=== PATIENT | male | born 1935 | race African-American/Black ===

== ENCOUNTER 2018-01-25 12:36 | Inpatient (IN) | payer MEDICARE, MEDICAID ==
[2018-01-25] MEDS ORDERED: Naloxone HCl 0.4 mg/ml Vial ONE (12:51)
[2018-01-25 13:32] LABS: #Eosinphils 0.1 thou/uL (0.0-0.7); #Lymphocytes 2.6 thou/uL (1.20-3.40); #Monocytes 0.9 thou/uL (0.11-0.59); #Neutrophils 9.6 thou/uL (1.40-6.50); %Basophils 0.1 % (0.0-1.0); %Eosinophils 0.6 % (0.0-10.0); %Lymphocytes 19.4 % (21.0-51.0); %Monocytes 6.9 % (0.0-10.0); %Neutrophils 72.9 % (42.0-75.0); Hemoglobin 11.9 g/dL (14.0-18.0); Mean Corpuscular HGB CONC 30.9 g/dL (32.0-36.0); Mean Corpuscular Hemoglobin 31.2 pg (27.0-31.0); Mean Platelet Volume 7.1 fL (7.4-10.4); Platelet Count 285 thou/uL (130-400); RBC Distribution Width 15.8 % (11.5-14.5); Red Blood Cell (RBC) Count 3.81 mill/uL (4.70-6.10); White Blood Cell (WBC) Count 13.2 thou/uL (4.8-10.8)
[2018-01-25 13:36] LABS: Bilirubin Small (Negative); Blood, Urine Trace (Negative); Clarity CLOUDY (Clear); Glucose, Urine (Dipstick) Negative (Negative); Leukocyte Moderate (Negative); Nitrite Positive (Negative); Protein, Urine (Dipstick) Trace mg/dL (Neg-Trace); Specific Gravity, Urine 1.025 (1.002-1.036); pH, Urine 5.5 (5.0-9.0)
[2018-01-25 13:38] LABS: Prothrombin Time 48.7 SEC (12.0-14.7)
[2018-01-25 13:38] LABS: Bacteria/HPF 4+ HPF (None Seen); Pathc Cast-AUWi Flag 2.16 (0-2.49); RBC/HPF 0-3 HPF (0-3)
[2018-01-25 13:39] LABS: PTT 75.5 SEC (22.9-36.1)
[2018-01-25 13:42] LABS: INR-International Normal Ratio 4.9
[2018-01-25 13:51] LABS: Hyaline Casts/LPF NONE SEEN LPF (0-3 Hyaline)
[2018-01-25 13:54] LABS: ALT (SGPT) 24 U/L (8-55); AST (SGOT) 28 U/L (5-34); Albumin 2.9 g/dL (3.4-4.8); Alkaline Phosphatase 89 U/L (40-150); Anion Gap 12 mmol/L (10-20); BUN (Urea Nitrogen) 11 mg/dL (8.4-25.7); Bilirubin, Total 0.6 mg/dL (0.2-1.2); Calc. Creatinine Clearance 0 mL/min (70-130); Calcium 9.4 mg/dL (7.8-10.44); Carbon Dioxide 27 mmol/L (23-31); Chloride 102 mmol/L (98-107); Estimated GFR-MDRD Greater than 90; Globulin 5.6 g/dL (2.4-3.5); Glucose 89 mg/dL (83-110); Potassium 3.5 mmol/L (3.5-5.1); Protein, Total 8.5 g/dL (5.8-8.1); Sodium 137 mmol/L (136-145)
[2018-01-25 13:58] LABS: CKMB 1.5 ng/mL (0-6.6); Troponin I 0.012 ng/mL (< 0.028)
[2018-01-25] MEDS ORDERED: cefTRIAXone\\ROCEPHIN 2 GM in Sodium Chloride 0.9% 100 ML IVPB SCH (14:30)
--- NOTE | 2018-01-25 15:25 | CT ---
HEAD CT WITHOUT CONTRAST: Date: 01/25/18 COMPARISON: 09/13/16. HISTORY: Altered mental status, pain. TECHNIQUE: Serial axial CT imaging obtained at 5 mm intervals from vertex through skull base without contrast. FINDINGS: There is a hemispheric subdural hematoma on the right, new when compared to prior imaging. It is prim arily isodense/hypodense, but there are some focal areas of hyperdensity within its anterior portion, best seen on image 23. There is no evidence for subdural hemorrhage on the left. There is periventricular, deep, and subcortical white matter hypodensity, suggesting small vessel dis ease, most prominent in bilateral parieto-occipital regions. The imaged paranasal sinuses/mastoid air cells are well aerated. There is no displaced calvarial frac ture. There is atherosclerotic calcification of the distal vertebral arteries and the cavernous carot id arteries. There is prominent diffuse cerebral volume loss. The hemispheric right-sided subdural hematoma measures up to 1.0 cm in transverse dimension in the pa rietal region, and up to 7-8 mm in transverse dimension in the frontal region. No associated midline shift is seen. IMPRESSION: Hemispheric right-sided acute on chronic subdural hematoma as described above. No midline shift noted at this point. There is extensive cerebral volume loss and evidence of small vessel disease. Dr. Harrison made aware at 1345 hours on 01/25/18. CODE CR. POS: [facility]
--- NOTE | 2018-01-25 15:42 | RAD ---
PORTABLE CHEST ONE VIEW 01/25/18 at 2:34 p.m. HISTORY: Altered mental status. FINDINGS/IMPRESSION: Comparison is made with exam of 09/13/16. The patient is rotated to the right. The heart size is normal. No lobar consolidation, definite pneum othorax or pleural effusions are seen. There are degenerative changes in the spine. POS: [facility]
--- NOTE | 2018-01-25 15:44 | RAD ---
AP PELVIS: Date: 01/25/18 HISTORY: Pelvic pain. FINDINGS/IMPRESSION: There are degenerative changes in the spine. There is a joe in the visualized portions of the femur. Degenerative changes are present. There is artifact overlying the right hip and proximal thigh which obscures bony detail. Though no definite right-sided fracture is seen, I cannot completely exclude a fracture on this exam. Recommend repeating the exam. POS: [facility]
[2018-01-25] MEDS ORDERED: Phytonadione 10 MG in Sodium Chloride 0.9% 50 ML IVPB SCH (15:45)
[2018-01-25] MEDS ORDERED: Ondansetron ODT 4 MG TAB PO PRN (16:48)
[2018-01-25] MEDS ORDERED: Ondansetron HCl/PF 4 MG/2 ML Vial IVP PRN (16:48)
[2018-01-25 16:51] LABS: Troponin I 0.027 ng/mL (< 0.028)
[2018-01-25] MEDS ORDERED: FLU VACC TS2017-18 (>65YR) 0.5 ML SYRINGE IM ONE (17:15)
[2018-01-25] MEDS: Dextrose 5 % And 0.9 % NaCl 1,000 ML IV SCH (17:46)
[2018-01-25] MEDS: Ciprofloxacin Lactate/D5W 200 MG in Premix Bag 1 BAG IVPB SCH (18:17)
[2018-01-25 20:03] LABS: Troponin I 0.015 ng/mL (< 0.028)
--- NOTE | 2018-01-25 21:34 | CON ---
DATE OF CONSULTATION: 01/25/2018 HISTORY OF PRESENT ILLNESS: Mr. Allen is an 83-year-old male, who presented to the emergency depar tment today with a nontraumatic subdural hematoma and altered mental status. He also has an obvious signs of infection at his penis and has stage II bedsores on the posterior side of his back. Mr. Ariel gray presented to the emergency department after the family has did not want him on hospice any longe r. There is no gait or no information about falls that we can obtain at this time as the family is n ot here. The patient has a GCS of approximately 10. He has been on Coumadin and His INR is 4.9. Ho spice was revoked this morning and a CT of the brain shows acute on chronic right-sided subdural sarwat pat over the right convexity. There is no midline shift. On exam, he localized to pain in the upper and lower extremities bilaterally, but he only makes incom prehensible sounds. His heart rate is in the 120s. He does not follow commands, so I was unable to check the majority of his cranial nerves. His pupils are equal and reactive to light bilaterally. N eurosurgery was consulted for the findings on the CT scan. ALLERGIES: No known drug allergies. CURRENT MEDICATIONS: 1. Metoprolol. 2. Atorvastatin. 3. Omnicef. 4. Vitamin C. 5. Acetaminophen. 6. Docusate sodium. 7. Lansoprazole. 8. Valproic acid. 9. Warfarin. PAST MEDICAL HISTORY: Tetanus vaccine is up to date. Flu vaccine is up to date. The patient has a history of hyperlipidemia, hypertension. Neurologic disease including dementia and CVA. The rest wa s unable to obtain. MALE SURGICAL HISTORY: Unable to obtain at this time. SOCIAL HISTORY: The patient lives at home with his family. He was just taken off of hospice this mo rning by his family. REVIEW OF SYSTEMS: Unable to obtain because of a caviat of patient making incomprehensible sounds. PHYSICAL EXAMINATION: VITAL SIGNS: Reviewed. The patient is tachycardic. Systolic blood pressures in the 150s. He has a GCS of 10, making incomprehensible sounds. Response to pain in the upper and lower extremities bila terally localizing. HEENT: Normocephalic, atraumatic. Hearing intact. Moist mucous membranes. Trachea is midline. Ey es: Pupils are equal and reactive to light. Extraocular muscles are intact. Sclerae is white, oswald cteric. CARDIOVASCULAR: He has a tachycardic rate, normal rhythm. S1, S2. Heart sounds heard. EXTREMITIES: There is no distal cyanosis or clubbing noted. Pulses were palpated in the lower extre mity and posterior tibial pulses and brachial and radial pulses in the upper extremities that are +2. NEUROLOGIC: Cranial nerves are intact. The patient does not respond to my questions appropriately, making incomprehensible sounds. He has a GCS of 10. I am unable to tell whether he has any focal or motor deficits as he does not follow commands and does not communicate well. The patient has multip le medical problems. ASSESSMENT: Kishan Allen is an 83-year-old male who had hospice revoked this morning. He present s with a penile infection, acute on chronic right-sided subdural hematoma. He has nonhealing stage I I bedsores on his back. PLAN: There is no neurosurgical indication at this time. Medicine team will admit the patient. The y will reverse his Coumadin and get his INR into therapeutic range. The subdural hematoma is not hug e, and I am not worried about pressure on the brain at this time. He has many other medical concerns at this time. Images were reviewed by Dr. Whitten and he agrees with my plan. If there are any f urther questions, please feel free to contact Neurosurgery.
[2018-01-26] MEDS: Ciprofloxacin Lactate/D5W 200 MG in Premix Bag 1 BAG IVPB SCH ×2 (05:01→17:39)
[2018-01-26] MEDS: Dextrose 5 % And 0.9 % NaCl 1,000 ML IV SCH ×2 (05:53→17:38)
[2018-01-26] MEDS ORDERED: cefTRIAXone\\ROCEPHIN 1 GM, Syringe 0.4 ML in Sterile Water 9.6 ML SLOW IVP SCH (08:00)
[2018-01-26] MEDS ORDERED: cefTRIAXone\\ROCEPHIN 1 GM in Sodium Chloride 0.9% 100 ML IVPB SCH (08:00)
[2018-01-26 08:04] LABS: #Eosinphils 0.1 thou/uL (0.0-0.7); #Neutrophils 8.7 thou/uL (1.40-6.50); %Basophils 0.3 % (0.0-1.0); %Eosinophils 0.6 % (0.0-10.0); %Lymphocytes 16.6 % (21.0-51.0); %Monocytes 8.5 % (0.0-10.0); %Neutrophils 74.1 % (42.0-75.0); Hemoglobin 11.3 g/dL (14.0-18.0); Mean Corpuscular HGB CONC 31.5 g/dL (32.0-36.0); Mean Corpuscular Hemoglobin 31.7 pg (27.0-31.0); Mean Platelet Volume 7.4 fL (7.4-10.4); Platelet Count 268 thou/uL (130-400); RBC Distribution Width 15.5 % (11.5-14.5); Red Blood Cell (RBC) Count 3.55 mill/uL (4.70-6.10); White Blood Cell (WBC) Count 11.8 thou/uL (4.8-10.8)
[2018-01-26 08:15] LABS: Glucose 73 mg/dL (83-110)
--- NOTE | 2018-01-26 08:16 | CON ---
DATE OF CONSULTATION: 01/26/2018 PULMONARY OR CRITICAL CARE CONSULTATION CONSULTING PHYSICIAN: Dr. Damon. REASON FOR CONSULTATION: ICU stay. HISTORY OF PRESENT ILLNESS: This is an 83-year-old -[place] male who presented to the emergency room yesterday with a nontraumatic subdural hematoma and altered mental status. I have reviewed consultations and other notes in the chart. The patient is unable to provide much in the way of history, although he can answer some general questions. The patient had been on hospice at home. Family became concerned because he was not as responsive as he had been. They revoked hospice and had him transported to the emergency room. Here , he was found to be in bad shape with an ulcer on his penis from a condom catheter. He also had significant bedsores on his back. He is also chronically contracted. PAST MEDICAL HISTORY: Stroke, dementia, decubitus ulcers, hyperlipidemia, hypertension. PAST SURGICAL HISTORY: Not known at this time. MEDICATIONS PRIOR TO ADMISSION: Metoprolol, atorvastatin, Omnicef, vitamin C, acetaminophen, docusate, lansoprazole, valproic acid, warfarin - indication of warfarin is not known at this time. SOCIAL HISTORY: Lives at home with his family. Smoking and alcohol history, not known. ALLERGIES: None. REVIEW OF SYSTEMS: Unable to obtain as patient cannot add much to the history. PHYSICAL EXAMINATION: VITAL SIGNS: Temperature 98.8, pulse 111, blood pressure 146/69, respiratory rate 20. GENERAL: This patient is chronically contracted in both arms and legs, has significant ulceration over his penis. Has obvious skin breakdown in the sacral region and also over pressure points on his feet. GENERAL: He will arouse. He asks for water. Does not answer much more in the way of questions. He is not oriented. HEENT: Pupils are reactive. Sclerae are anicteric. Oropharynx dry. NECK: No JVD, no thyromegaly. LUNGS: Clear to auscultation without wheezing. CARDIAC: S1 and S2 regular, without murmur. ABDOMEN: There is a PEG tube in place. He has a binder over the PEG tube to keep him from pulling in and out. EXTREMITIES: Severe muscle wasting and contractures. Difficult to tell if he could move anything secondary to degree of contractures. LABORATORY DATA: INR is 4.9. White blood cell count 13.2, hematocrit 38.4, platelet count 285. Sodium 137, potassium 3.5, chloride 102, CO2 27, BUN 11, creatinine 0.7, glucose 89, albumin was 2.9, C-reactive protein 6.5. ASSESSMENT: 1. Significant decubitus ulcers of the penile ulceration. 2. Nontraumatic subdural hematoma. PLAN: The patient does not require ICU care. He can be transferred to the stroke floor. His warfarin has been stopped. He is currently on anti- infective therapy for his ulcerations. I would recommend monitoring. Continue monitoring his PT/INR to make sure he does not need additional reversal of anticoagulation. 70 min. of time was pent performing this consultation. Of the 70 min., greater than 50% of time was spent on counseling and coordination of care [email or web address]
[2018-01-26 08:22] LABS: INR-International Normal Ratio 1.4; Prothrombin Time 17.3 SEC (12.0-14.7)
[2018-01-26 08:32] LABS: Anion Gap 11 mmol/L (10-20); BUN (Urea Nitrogen) Less than 20 mg/dL (8.4-25.7); Calc. Creatinine Clearance 90 mL/min (70-130); Calcium 9.5 mg/dL (7.8-10.44); Chloride 104 mmol/L (98-107); Estimated GFR-MDRD Greater than 90; Sodium 138 mmol/L (136-145)
[2018-01-26 08:47] LABS: Carbon Dioxide 25 mmol/L (23-31)
[2018-01-26] MEDS: Tamsulosin HCl 0.4 MG CAP PO SCH (09:14)
--- NOTE | 2018-01-26 09:34 | PRG ---
DATE OF SERVICE: 01/26/2017 SUBJECTIVE: The patient is seen and examined at the bedside. He is able to follow my simple command s. He is aware that he is in the hospital, but he does not know where. He knows that we are in the January, but he does not know the year. OBJECTIVE: VITAL SIGNS: Blood pressure is 122/62, pulse is 113, respiratory rate is 17, pulse oximetry is 100%. HEENT: His head is atraumatic, normocephalic. Eyes: Pupils are equal, responding to light properly . Sclerae nonicteric. Oral mucosa is moist. NECK: Supple. LUNGS: Clear. HEART: S1, S2. Tachycardic. No S3, no S4. ABDOMEN: Soft. He has a PEG tube in place covered with a belt, which protects from pulling out of t he tube. EXTREMITIES: He has contractions, mainly at the right upper and right lower extremity, most likely i t is related to previous CVA. SKIN: He has decubiti, right foot and sacrum. LABORATORY DATA: White count of 11.8, hemoglobin 11.3, hematocrit 35.7, platelet count is 268. INR is 1.4, PT is 17.3. Chemistry is pending. Glucose 73. Microbiology is growing gram negative rods i n urine. Blood culture no growth. Blood culture from the penis, he has some ulceration, is pending. Although, preliminary Gram-stain showed no WBCs, few epithelial cells, no organisms seen. IMPRESSION AND PLAN: 1. Chronic subdural hematoma, not requiring any neurosurgical intervention. His hyperanticoagulatio n was reversed, which is good, but it does not look like he was taking any Coumadin or any blood thin ner at home except for aspirin, so it is not clear why his coagulation was significantly off. 2. Significant decubiti and ulcers of penis, right foot and sacrum. 3. Contraction of the right upper and lower extremity, most likely related to previous stroke. 4. PEG tube. 5. Urinary tract infection with gram negative rods. 6. Microcytic anemia. We will check folic acid and vitamin B12 levels. 7. Encephalopathy. At this point, unclear whether this is related to his UTI and on the top of his brain problems it looks like he has some dementia because one of his home medications is donepezil, s o plan is to consult PT and OT, and wound care. We will assess dysphagia, but we will use PEG tube t o feed him and we start him on his metoprolol and Flomax along with atorvastatin. The rest of medica tions will be on hold for now. We will continue his sequential compression devices and he will be mo klaudia to the stroke unit.
[2018-01-26] MEDS: Potassium Chloride 20 MEQ TAB PO SCH ×2 (16:12→20:32)
[2018-01-26] MEDS: Atorvastatin Calcium 40 MG TAB PO SCH (20:31)
[2018-01-27 05:26] LABS: Anion Gap 10 mmol/L (10-20); BUN (Urea Nitrogen) 6 mg/dL (8.4-25.7); Calc. Creatinine Clearance 93 mL/min (70-130); Carbon Dioxide 24 mmol/L (23-31); Chloride 107 mmol/L (98-107); Estimated GFR-MDRD Greater than 90; Glucose 120 mg/dL (83-110); Potassium 3.4 mmol/L (3.5-5.1); Sodium 138 mmol/L (136-145)
[2018-01-27] MEDS: Ciprofloxacin Lactate/D5W 200 MG in Premix Bag 1 BAG IVPB SCH (05:31)
[2018-01-27] MEDS ORDERED: Iopamidol 370 76% 100 ML VIAL ONE (07:50)
[2018-01-27] MEDS: Tamsulosin HCl 0.4 MG CAP PO SCH (09:24)
[2018-01-27] MEDS ORDERED: Labetalol HCl 100 MG/20 ML VIAL SLOW IVP PRN (09:34)
[2018-01-27] MEDS ORDERED: hydrALAZINE 20 MG/ML VIAL SLOW IVP PRN (09:34)
[2018-01-27] MEDS: Dextrose 5 % And 0.9 % NaCl 1,000 ML IV SCH (14:50)
[2018-01-27] MEDS ORDERED: Meropenem 1 GM in Sodium Chloride 0.9% 100 ML IVPB SCH (17:00)
--- NOTE | 2018-01-27 18:18 | PDOC.PN ---
- Subjective Encounter Start Date: 01/27/18 Encounter Start Time: 10:00 Patient seen and examined. No new complaints. No overnight events - Objective MAR Reviewed: Yes Vital Signs & Weight: Vital Signs (12 hours) Temp Pulse Pulse Pulse Resp BP BP 01/27/18 16:00 98.0 F 130 H 16 01/27/18 12:00 99.0 F 125 H 20 01/27/18 08:50 125 H 125 H 113/60 115/62 01/27/18 08:31 125 H 129/74 01/27/18 08:00 99.0 F 125 H 20 01/27/18 07:51 98.7 F 123 H 18 BP Pulse Ox 01/27/18 16:00 124/66 95 01/27/18 12:00 123/64 93 L 01/27/18 08:50 01/27/18 08:31 01/27/18 08:00 01/27/18 07:51 120/77 95 Weight Admit Weight 160 lb 4.417 oz Weight 147 lb 11.2 oz Most Recent Monitor Data Heart Rate from ECG 117 NIBP 110/59 NIBP BP-Mean 69 Respiration from ECG 16 SpO2 100 I&O: 01/26/18 01/27/18 01/28/18 06:59 06:59 06:59 Intake Total 1178 2140 1086 Output Total 450 Balance 728 2140 1086 Result Diagrams: 01/26/18 07:44 01/27/18 05:00 EKG Reviewed by me: Yes (Tele ST) Phys Exam - Physical Examination Constitutional: NAD Respiratory: no wheezing, no rhonchi Cardiovascular: RRR, no rub Gastrointestinal: soft, non-tender, positive bowel sounds Musculoskeletal: no edema Neuro - No new focal deficits. AAO x 1 Dx/Plan - Plan DVT proph w/SCDs IMPRESSION: 1. Intracranial bleed 2. UTI - ESBL E coli 3. Swallow dysfunction - on modified diet. Also has PEG 4. Multiple decub ulcer present on admission 5. Other issues per previous notes PLAN: * Change Atbx to Meropenem * Cont to monitor * AM labs * Cont current meds as below Microbiology 01/25/18 13:15 Urine Straight Catheter Urine Culture - Final Escherichia coli Review of Systems - Review of Systems Other: Cannot reliably obtain due to current cognition - Medications/Allergies Allergies/Adverse Reactions: Allergies Allergy/AdvReac Type Severity Reaction Status Date / Time No Known Allergies Allergy Verified 01/25/18 16:16 Medications: Current Medications Acetaminophen (Tylenol) 650 mg PO Q4H PRN PRN Reason: Headache/Fever or Pain Atorvastatin Calcium (Lipitor) 80 mg PO HS [facility] Last Admin: 01/26/18 20:31 Dose: 80 mg Hydralazine HCl (Apresoline) 10 mg SLOW IVP Q4H PRN PRN Reason: SBP GREATER THAN 160 Dextrose/Sodium Chloride (D5 0.9% Ns) 1,000 mls @ 50 mls/hr IV .Q20H [facility] Last Admin: 01/27/18 14:50 Dose: 1,000 mls Meropenem 1 gm/ Sterile Water 20 mls @ 240 mls/hr SLOW IVP 0200,1000,1800 [facility] Labetalol HCl (Normodyne) 10 mg SLOW IVP Q4H PRN PRN Reason: Systolic BP > 160 Metoprolol Succinate (Toprol Xl) 50 mg PO DAILY [facility] Last Admin: 01/27/18 09:24 Dose: 50 mg Ondansetron HCl (Zofran Odt) 4 mg PO Q6H PRN PRN Reason: Nausea/Vomiting Ondansetron HCl (Zofran) 4 mg IVP Q6H PRN PRN Reason: Nausea/Vomiting Tamsulosin HCl (Flomax) 0.4 mg PO DAILY [facility] Last Admin: 01/27/18 09:24 Dose: 0.4 mg
[2018-01-27] MEDS: Meropenem 1 GM in Sterile Water 20 ML SLOW IVP SCH (18:50)
--- NOTE | 2018-01-27 18:54 | CT ---
CT ARTERIOGRAM CHEST WITH IV CONTRAST AND 3D MIP IMAGING: History: Chest pain. FINDINGS: There is good contrast opacification of pulmonary arteries and thoracic aorta with bovine origin of t he great vessels. Mild atelectasis is present at the dependent portion of the right lung. No pneumoth orax or mediastinal adenopathy. IMPRESSION: No CT evidence of pulmonary embolus. POS: [facility]
[2018-01-27] MEDS: Atorvastatin Calcium 40 MG TAB PO SCH (20:41)
[2018-01-28] MEDS: Meropenem 1 GM in Sterile Water 20 ML SLOW IVP SCH ×3 (02:48→17:49)
[2018-01-28 05:13] LABS: #Eosinphils 0.1 thou/uL (0.0-0.7); #Lymphocytes 2.1 thou/uL (1.20-3.40); #Neutrophils 4.8 thou/uL (1.40-6.50); %Basophils 0.5 % (0.0-1.0); %Eosinophils 1.6 % (0.0-10.0); %Lymphocytes 26.5 % (21.0-51.0); %Monocytes 11.9 % (0.0-10.0); %Neutrophils 59.6 % (42.0-75.0); Hemoglobin 11.8 g/dL (14.0-18.0); Mean Corpuscular HGB CONC 31.5 g/dL (32.0-36.0); Mean Corpuscular Hemoglobin 31.3 pg (27.0-31.0); Mean Corpuscular Volume 99.5 fl (80.0-94.0); Mean Platelet Volume 7.6 fL (7.4-10.4); Platelet Count 175 thou/uL (130-400); RBC Distribution Width 15.6 % (11.5-14.5); Red Blood Cell (RBC) Count 3.77 mill/uL (4.70-6.10); White Blood Cell (WBC) Count 8.1 thou/uL (4.8-10.8)
[2018-01-28 05:27] LABS: Albumin 2.4 g/dL (3.4-4.8); Anion Gap 9 mmol/L (10-20); BUN (Urea Nitrogen) 6 mg/dL (8.4-25.7); BUN/Creatinine Ratio 10.91; Calc. Creatinine Clearance 98 mL/min (70-130); Calcium 8.7 mg/dL (7.8-10.44); Carbon Dioxide 25 mmol/L (23-31); Chloride 107 mmol/L (98-107); Estimated GFR-MDRD Greater than 90; Glucose 101 mg/dL (83-110); Magnesium 1.2 mg/dL (1.6-2.6); Phosphorus 2.1 mg/dL (2.3-4.7); Sodium 138 mmol/L (136-145)
--- NOTE | 2018-01-28 06:53 | HP ---
CHIEF COMPLAINT: Altered mental status. HISTORY OF PRESENT ILLNESS: An 83-year-old gentleman who has been on hospice, but for whatever reaso n, the family took him off hospice and brought in with complaint of altered mental status and possibl e chest pain. In any case, the patient presented via EMS. Clinical evaluation of this patient showe d significant evidence of urinary tract infection as indicated by [place] that was removed with t he glans penis covered with pus. In any case, the patient is now being admitted for further manageme nt and further evaluation did reveal evidence of acute on chronic subdural hematoma. Of note, the pa tient is on Coumadin with supratherapeutic INR of 4.9. Decision is now being taken to admit this pat ient for the above-mentioned complicated issues. ALLERGIES: No known drug allergies. MEDICATIONS: Reviewed and as documented on [employer]. PAST MEDICAL HISTORY: Significant for CVA, subdural hematoma in the past, hypertension and dyslipide brian. SOCIAL HISTORY: The patient lives at home and was on hospice, was just taken off hospice, to call EM S and bring in the patient. LABORATORY INVESTIGATION: Showed unremarkable chemistry. PHYSICAL EXAMINATION: GENERAL: The patient was found to be ill looking in a contracture posture and noted with the followi ng vital signs. VITAL SIGNS: Afebrile with temperature 98, pulse 112, respiratory rate of 20, O2 sat of 100% with bl ood pressure 122/66. HEENT: Unremarkable. CARDIOVASCULAR SYSTEM: First and second heart sounds were heard. RESPIRATORY SYSTEM: Clear to auscultation anteriorly. DIGESTIVE SYSTEM: Revealed a scaphoid abdomen. EXTREMITIES: No peripheral edema. The patient's extremities seem to be more or less confined in a l imited space. LYMPHATICS: No peripheral lymphadenopathy. IMPRESSION: 1. Urinary tract infection. 2. Sepsis in the context of urinary tract infection. 3. Advanced age. 4. Failure to thrive. 5. Intravascular depletion and severe malnutrition. 6. Acute on chronic small subdural hematoma. 7. Supratherapeutic INR. PLAN: 1. Admit the patient to ICU. 2. Discontinue oral anticoagulant. 3. We will consult Neurology and Neurosurgical Service, I believe they are already on the case. 4. Broad spectrum antibiotics. 5. Further management to be dependent on the clinical course as well as further recommendations from the other specialty services. SUMMARY: An 83-year-old gentleman, who presented here having been taken off hospice.
[2018-01-28] MEDS ORDERED: Magnesium Sulfate 4 GM, Admixture Fee 1 EACH in Sodium Chloride 0.9% 250 ML 250 ML IVPB SCH (09:00)
[2018-01-28] MEDS: Tamsulosin HCl 0.4 MG CAP PO SCH (09:32)
[2018-01-28] MEDS: Acetaminophen 325 MG TAB PO PRN (09:42)
[2018-01-28] MEDS: Dextrose 5 % And 0.9 % NaCl 1,000 ML IV SCH (13:44)
[2018-01-28] MEDS: K-Phos Neutral 250 MG TAB PO SCH ×3 (13:45→20:03)
--- NOTE | 2018-01-28 15:32 | PDOC.PN ---
- Subjective Encounter Start Date: 01/28/18 Encounter Start Time: 10:00 Patient seen and examined. No new complaints. No overnight events - Objective Resuscitation Status: Resuscitation Status DNR:Do Not Resuscitate MAR Reviewed: Yes Vital Signs & Weight: Vital Signs (12 hours) Temp Pulse Resp BP Pulse Ox 01/28/18 11:43 98 F 125 H 18 140/72 97 01/28/18 08:00 98.4 F 113 H 20 128/69 98 01/28/18 03:48 98.8 F 113 H 16 103/62 95 Weight Admit Weight 160 lb 4.417 oz Weight 147 lb 11.2 oz Most Recent Monitor Data Heart Rate from ECG 117 NIBP 110/59 NIBP BP-Mean 69 Respiration from ECG 16 SpO2 100 I&O: 01/27/18 01/28/18 01/29/18 06:59 06:59 06:59 Intake Total 2140 2236 674 Output Total 1 Balance 2140 2235 674 Result Diagrams: 01/28/18 05:03 01/28/18 05:03 Radiology Reviewed by me: Yes (CTA chest - No PE) EKG Reviewed by me: Yes (Tele ST) Phys Exam - Physical Examination Constitutional: NAD Respiratory: no wheezing, no rhonchi Cardiovascular: RRR, no rub tachycardic Gastrointestinal: soft, non-tender, positive bowel sounds Musculoskeletal: no edema Neuro - No new focal deficits. Dx/Plan - Plan DVT proph w/SCDs IMPRESSION: 1. Intracranial bleed 2. UTI - ESBL E coli - on Meropenem 3. Swallow dysfunction - on modified diet. Also has PEG 4. Multiple decub ulcer present on admission 5. Electrolyte abn (Hypokalemia/Hypophosphatemia/Hypomagnesemia) 6. Persistent sinus tachycardia - PE ruled out 7. Other issues per previous notes PLAN: * Start tube feeds due to poor appetite * Replace electrolytes * Change IVF to NS with KCL * Cont to monitor * AM labs * Cont current meds as below * DC planning * Palliative care team following * Change Toprol XL to Metoprolol tartarate BID for better HR control Review of Systems - Review of Systems Cardiovascular: other. negative: chest pain, palpitations, orthopnea, paroxysmal nocturnal dyspnea, edema, light headedness Gastrointestinal: negative: Nausea, Vomiting, Abdominal Pain, Diarrhea, Constipation, Melena, Hematochezia - Medications/Allergies Allergies/Adverse Reactions: Allergies Allergy/AdvReac Type Severity Reaction Status Date / Time No Known Allergies Allergy Verified 01/25/18 16:16 Medications: Current Medications Acetaminophen (Tylenol) 650 mg PO Q4H PRN PRN Reason: Headache/Fever or Pain Last Admin: 01/28/18 09:42 Dose: 650 mg Atorvastatin Calcium (Lipitor) 80 mg PO HS [facility] Last Admin: 01/27/18 20:41 Dose: Not Given Hydralazine HCl (Apresoline) 10 mg SLOW IVP Q4H PRN PRN Reason: SBP GREATER THAN 160 Meropenem 1 gm/ Sterile Water 20 mls @ 240 mls/hr SLOW IVP 0200,1000,1800 [facility] Last Admin: 01/28/18 13:44 Dose: 20 mls Potassium Chloride/Sodium Chloride (Ns 0.9% W/ 40 Meq Kcl) 1,000 mls @ 50 mls/ hr IV .Q20H [facility] Labetalol HCl (Normodyne) 10 mg SLOW IVP Q4H PRN PRN Reason: Systolic BP > 160 Metoprolol Tartrate (Lopressor) 50 mg PER TUBE BID [facility] Ondansetron HCl (Zofran Odt) 4 mg PO Q6H PRN PRN Reason: Nausea/Vomiting Ondansetron HCl (Zofran) 4 mg IVP Q6H PRN PRN Reason: Nausea/Vomiting Phosphorus (Kphos Neutral) 500 mg PO QID-WM [facility] Last Admin: 01/28/18 13:45 Dose: 500 mg Sodium Chloride (Flush - Normal Saline) 10 ml IVF Q12HR [facility] Last Admin: 01/28/18 09:38 Dose: Not Given Sodium Chloride (Flush - Normal Saline) 10 ml IVF PRN PRN PRN Reason: Saline Flush Tamsulosin HCl (Flomax) 0.4 mg PO DAILY [facility] Last Admin: 01/28/18 09:32 Dose: 0.4 mg
[2018-01-28] MEDS: NS 0.9% w/ 40 MEQ KCL 1,000 ML IV SCH (17:50)
[2018-01-28] MEDS: Metoprolol Tartrate 50 MG TAB PER TUBE SCH (20:03)
[2018-01-28] MEDS: Atorvastatin Calcium 40 MG TAB PO SCH (20:03)
[2018-01-29] MEDS: Meropenem 1 GM in Sterile Water 20 ML SLOW IVP SCH ×3 (02:37→18:08)
[2018-01-29 06:08] LABS: Albumin 2.3 g/dL (3.4-4.8); Anion Gap 9 mmol/L (10-20); BUN (Urea Nitrogen) 8 mg/dL (8.4-25.7); BUN/Creatinine Ratio 14.81; Calc. Creatinine Clearance 0 mL/min (70-130); Calcium 8.2 mg/dL (7.8-10.44); Carbon Dioxide 25 mmol/L (23-31); Chloride 110 mmol/L (98-107); Estimated GFR-MDRD Greater than 90; Glucose 91 mg/dL (83-110); Magnesium 1.2 mg/dL (1.6-2.6); Phosphorus 2.4 mg/dL (2.3-4.7); Sodium 141 mmol/L (136-145)
[2018-01-29 06:10] LABS: Potassium 2.9 mmol/L (3.5-5.1)
[2018-01-29] MEDS: Metoprolol Tartrate 50 MG TAB PER TUBE SCH ×2 (08:34→20:12)
[2018-01-29] MEDS: K-Phos Neutral 250 MG TAB PO SCH ×4 (08:34→20:12)
[2018-01-29] MEDS: Tamsulosin HCl 0.4 MG CAP PO SCH (08:34)
[2018-01-29] MEDS: Acetaminophen 325 MG TAB PO PRN ×2 (08:47→18:18)
[2018-01-29] MEDS ORDERED: Magnesium Sulfate 4 GM, Admixture Fee 1 EACH in Sodium Chloride 0.9% 250 ML 250 ML IVPB SCH (10:00)
[2018-01-29] MEDS: NS 0.9% w/ 40 MEQ KCL 1,000 ML IV SCH (18:08)
[2018-01-29] MEDS: Atorvastatin Calcium 40 MG TAB PO SCH (20:11)
--- NOTE | 2018-01-29 21:45 | PDOC.PN ---
- Subjective Encounter Start Date: 01/29/18 Encounter Start Time: 09:00 Patient seen and examined. No new complaints. No overnight events - Objective Resuscitation Status: Resuscitation Status DNR:Do Not Resuscitate MAR Reviewed: Yes Vital Signs & Weight: Vital Signs (12 hours) Temp Pulse Resp BP Pulse Ox 01/29/18 14:56 98.2 F 107 H 20 109/57 L 95 01/29/18 11:46 98.7 F 93 18 124/62 94 L Weight Admit Weight 160 lb 4.417 oz Weight 160 lb 9.6 oz Most Recent Monitor Data Heart Rate from ECG 117 NIBP 110/59 NIBP BP-Mean 69 Respiration from ECG 16 SpO2 100 I&O: 01/28/18 01/29/18 01/30/18 06:59 06:59 06:59 Intake Total 2236 3785 1700 Output Total 1 Balance 2235 3785 1700 Result Diagrams: 01/28/18 05:03 01/29/18 05:19 EKG Reviewed by me: Yes (Tele ST) Phys Exam - Physical Examination Constitutional: NAD Respiratory: no wheezing, no rhonchi Cardiovascular: RRR, no rub Gastrointestinal: soft, non-tender, positive bowel sounds Musculoskeletal: no edema Neuro - no new focal deficits. Dx/Plan - Plan DVT proph w/SCDs IMPRESSION: 1. Intracranial bleed - No Antiplatelets/Anticoag due to intracranial bleed 2. UTI - ESBL E coli - on Meropenem - Will change to PO Atbx at dc 3. Swallow dysfunction - on modified diet/ PEG tube feed 4. Multiple decub ulcer present on admission 5. Electrolyte abn (Hypokalemia/Hypophosphatemia/Hypomagnesemia) 6. Persistent sinus tachycardia - PE ruled out - HR improving 7. Other issues per previous notes PLAN: * Replace electrolytes * Change IVF to 1/2 NS with KCL * Cont to monitor * AM labs * Cont current meds as below * DC planning * Palliative care team following * Hospice eval in progress Review of Systems - Review of Systems Respiratory: negative: Cough, Dry, Shortness of Breath, Hemoptysis, SOB with Excertion, Pleuritic Pain, Sputum, Wheezing Cardiovascular: negative: chest pain, palpitations, orthopnea, paroxysmal nocturnal dyspnea, edema, light headedness - Medications/Allergies Allergies/Adverse Reactions: Allergies Allergy/AdvReac Type Severity Reaction Status Date / Time No Known Allergies Allergy Verified 01/25/18 16:16 Medications: Current Medications Acetaminophen (Tylenol) 650 mg PO Q4H PRN PRN Reason: Headache/Fever or Pain Last Admin: 01/29/18 18:18 Dose: 650 mg Atorvastatin Calcium (Lipitor) 80 mg PO HS [facility] Last Admin: 01/29/18 20:11 Dose: 80 mg Hydralazine HCl (Apresoline) 10 mg SLOW IVP Q4H PRN PRN Reason: SBP GREATER THAN 160 Meropenem 1 gm/ Sterile Water 20 mls @ 240 mls/hr SLOW IVP 0200,1000,1800 [facility] Last Admin: 01/29/18 18:08 Dose: 20 mls Potassium Chloride/Sodium Chloride (1/2 Ns W/Kcl 20 Meq) 1,000 mls @ 50 mls/hr IV .Q20H [facility] Labetalol HCl (Normodyne) 10 mg SLOW IVP Q4H PRN PRN Reason: Systolic BP > 160 Metoprolol Tartrate (Lopressor) 50 mg PER TUBE BID [facility] Last Admin: 01/29/18 20:12 Dose: 50 mg Ondansetron HCl (Zofran Odt) 4 mg PO Q6H PRN PRN Reason: Nausea/Vomiting Ondansetron HCl (Zofran) 4 mg IVP Q6H PRN PRN Reason: Nausea/Vomiting Phosphorus (Kphos Neutral) 500 mg PO QID-WM [facility] Last Admin: 01/29/18 20:12 Dose: 500 mg Sodium Chloride (Flush - Normal Saline) 10 ml IVF Q12HR [facility] Last Admin: 01/29/18 20:14 Dose: 10 ml Sodium Chloride (Flush - Normal Saline) 10 ml IVF PRN PRN PRN Reason: Saline Flush Last Admin: 01/29/18 02:44 Dose: 10 ml Tamsulosin HCl (Flomax) 0.4 mg PO DAILY [facility] Last Admin: 01/29/18 08:34 Dose: 0.4 mg
[2018-01-29] MEDS: 1/2 NS w/KCL 20 mEq 1,000 ML IV SCH (23:20)
[2018-01-30] MEDS: Meropenem 1 GM in Sterile Water 20 ML SLOW IVP SCH ×3 (01:40→17:41)
[2018-01-30 05:19] LABS: Anion Gap 8 mmol/L (10-20); BUN (Urea Nitrogen) 7 mg/dL (8.4-25.7); Calc. Creatinine Clearance 109 mL/min (70-130); Calcium 8.2 mg/dL (7.8-10.44); Carbon Dioxide 24 mmol/L (23-31); Chloride 112 mmol/L (98-107); Estimated GFR-MDRD Greater than 90; Glucose 93 mg/dL (83-110); Magnesium 1.7 mg/dL (1.6-2.6); Phosphorus 2.5 mg/dL (2.3-4.7); Potassium 3.4 mmol/L (3.5-5.1); Sodium 141 mmol/L (136-145)
[2018-01-30] MEDS: Tamsulosin HCl 0.4 MG CAP PO SCH (10:02)
[2018-01-30] MEDS: Metoprolol Tartrate 50 MG TAB PER TUBE SCH ×2 (10:02→22:56)
[2018-01-30] MEDS: K-Phos Neutral 250 MG TAB PO SCH ×4 (10:05→22:56)
--- NOTE | 2018-01-30 12:34 | PQF ---
CLINICAL DOCUMENTATION IMPROVEMENT CLARIFICATION FORM: ICD-10 Updated PLEASE DO AN ADDENDUM TO THE PROGRESS NOTE WITH ANY DOCUMENTATION UPDATES OR ADDITIONS AND CARRY THROUGH TO DC SUMMARY. THANK YOU. DATE: 01/30/18 ATTN: Dr. Mcgarry Please exercise your independent, professional judgment in responding to the clarification form. Clinical indicators are provided on the bottom of this form for your review Please check appropriate box(s) to clarify if the following diagnosis has been ruled in our ruled out: SEPSIS IN THE CONTEXT OF URINARY TRACT INFECTION (H&P) [ ] Ruled in diagnosis [ ] Continue to treat [ ] Resolved [ ] Ruled out diagnosis [ ] Cannot rule out diagnosis [ ] Other diagnosis [ ] Unable to determine In addition, please specify: Present on Admission (POA): [ ] Yes [ ] No [ ] Unable to determine For continuity of documentation, please document condition throughout progress notes and discharge summary. Thank You. CLINICAL INDICATORS - SIGNS / SYMPTOMS / LABS H&P: ALTERED MENTAL STATUS. CLINICAL EVALUATION OF THIS PT SHOWED SIGNIFICANT EVIDENCE OF UTI INDICATED BY [place] JOSEPH THAT WAS REMOVED W/ GLANS PENIS COVERED W/ PUS. BP 122/66, PULSE 112, RESP RATE 20 IMPRESSION: SEPSIS IN THE CONTEXT OF URINARY TRACT INFECTION LAB: 01/25 WBC 13.2 PN 01/27-01/29: UTI - ESBL E COLI RISKS: H&P: AGE 83. CVA, SUBDURAL HEMATOMA. HYPERTENSION. SEPSIS IN THE CONTEXT OF UTI. INTRAVASCULAR DEPLETION & SEVERE MALNUTRITION. TREATMENT: CPOE 01/27: MEROPENEM 1 GM IV 0200, 1000, 1800 Thank you, Angélica (This form is maintained as a part of the permanent medical record) 2015 [employer] All Rights Reserved Angélica Rodriguez, RN, BSN [email or web address] Office: [phone] [facility]
[2018-01-30] MEDS: 1/2 NS w/KCL 20 mEq 1,000 ML IV SCH (17:40)
--- NOTE | 2018-01-30 19:00 | PDOC.PN ---
- Subjective Encounter Start Date: 01/30/18 Encounter Start Time: 10:30 Patient seen and examined. No new complaints. No overnight events - Objective Resuscitation Status: Resuscitation Status DNR:Do Not Resuscitate MAR Reviewed: Yes Vital Signs & Weight: Vital Signs (12 hours) Temp Pulse Resp BP Pulse Ox 01/30/18 15:10 99 F 60 18 106/55 L 95 01/30/18 08:00 99.8 F H 92 20 132/63 95 Weight Admit Weight 160 lb 4.417 oz Weight 162 lb 12.8 oz Most Recent Monitor Data Heart Rate from ECG 117 NIBP 110/59 NIBP BP-Mean 69 Respiration from ECG 16 SpO2 100 I&O: 01/29/18 01/30/18 01/31/18 06:59 06:59 06:59 Intake Total 3785 4322 2194 Balance 3785 4322 2194 Result Diagrams: 01/28/18 05:03 01/30/18 04:40 EKG Reviewed by me: Yes (Tele SR) Phys Exam - Physical Examination Constitutional: NAD Respiratory: no wheezing, no rhonchi Scat rales at bases Cardiovascular: RRR, no rub Gastrointestinal: soft, non-tender, positive bowel sounds Neuro - No new focal findings Dx/Plan - Plan DVT proph w/SCDs IMPRESSION: 1. Acute on Chronic subdural hematoma - No Antiplatelets/Anticoag due to intracranial bleed 2. Sepsis UTI - ESBL E coli - on Meropenem - Prob present on admission 3. Swallow dysfunction - on modified diet/ PEG tube feed 4. Multiple decub ulcer present on admission 5. Electrolyte abn (Hypokalemia/Hypophosphatemia/Hypomagnesemia) 6. Persistent sinus tachycardia - PE ruled out - HR improving 7. Other issues per previous notes PLAN: * Cont IVF to 1/2 NS with KCL * Await placement * Cont current meds as below Review of Systems - Review of Systems Cardiovascular: negative: chest pain, palpitations, orthopnea, paroxysmal nocturnal dyspnea, edema, light headedness Gastrointestinal: negative: Nausea, Vomiting, Abdominal Pain, Diarrhea, Constipation, Melena, Hematochezia - Medications/Allergies Allergies/Adverse Reactions: Allergies Allergy/AdvReac Type Severity Reaction Status Date / Time No Known Allergies Allergy Verified 01/25/18 16:16 Medications: Current Medications Acetaminophen (Tylenol) 650 mg PO Q4H PRN PRN Reason: Headache/Fever or Pain Last Admin: 01/29/18 18:18 Dose: 650 mg Atorvastatin Calcium (Lipitor) 80 mg PO HS [facility] Last Admin: 01/29/18 20:11 Dose: 80 mg Hydralazine HCl (Apresoline) 10 mg SLOW IVP Q4H PRN PRN Reason: SBP GREATER THAN 160 Meropenem 1 gm/ Sterile Water 20 mls @ 240 mls/hr SLOW IVP 0200,1000,1800 [facility] Last Admin: 01/30/18 17:41 Dose: 20 mls Potassium Chloride/Sodium Chloride (1/2 Ns W/Kcl 20 Meq) 1,000 mls @ 50 mls/hr IV .Q20H [facility] Last Admin: 01/30/18 17:40 Dose: 1,000 mls Labetalol HCl (Normodyne) 10 mg SLOW IVP Q4H PRN PRN Reason: Systolic BP > 160 Metoprolol Tartrate (Lopressor) 50 mg PER TUBE BID [facility] Last Admin: 01/30/18 10:02 Dose: 50 mg Ondansetron HCl (Zofran Odt) 4 mg PO Q6H PRN PRN Reason: Nausea/Vomiting Ondansetron HCl (Zofran) 4 mg IVP Q6H PRN PRN Reason: Nausea/Vomiting Phosphorus (Kphos Neutral) 500 mg PO QID-WM [facility] Last Admin: 01/30/18 17:41 Dose: 500 mg Sodium Chloride (Flush - Normal Saline) 10 ml IVF Q12HR [facility] Last Admin: 01/30/18 10:04 Dose: 10 ml Sodium Chloride (Flush - Normal Saline) 10 ml IVF PRN PRN PRN Reason: Saline Flush Last Admin: 01/29/18 02:44 Dose: 10 ml Tamsulosin HCl (Flomax) 0.4 mg PO DAILY [facility] Last Admin: 01/30/18 10:02 Dose: 0.4 mg
[2018-01-30] MEDS: Atorvastatin Calcium 40 MG TAB PO SCH (22:55)
[2018-01-31] MEDS ORDERED: Budesonide 0.25 MG/2 ML NEB ONE (03:32)
[2018-01-31] MEDS: Meropenem 1 GM in Sterile Water 20 ML SLOW IVP SCH ×3 (03:57→17:34)
[2018-01-31] MEDS: Metoprolol Tartrate 50 MG TAB PER TUBE SCH (08:39)
[2018-01-31] MEDS: Tamsulosin HCl 0.4 MG CAP PO SCH (08:39)
[2018-01-31] MEDS: K-Phos Neutral 250 MG TAB PO SCH ×4 (08:41→21:42)
[2018-01-31] MEDS: 1/2 NS w/KCL 20 mEq 1,000 ML IV SCH (16:36)
--- NOTE | 2018-01-31 18:20 | PDOC.PN ---
- Subjective Encounter Start Date: 01/31/18 Encounter Start Time: 09:30 Patient seen and examined. No new complaints. No overnight events - Objective Resuscitation Status: Resuscitation Status DNR:Do Not Resuscitate MAR Reviewed: Yes Vital Signs & Weight: Vital Signs (12 hours) Temp Pulse Resp BP BP Pulse Ox 01/31/18 16:45 97/55 L 01/31/18 16:40 98.6 F 112 H 27 H 89/53 L 97 01/31/18 11:45 96.9 F L 90 16 109/60 100 01/31/18 08:41 97.5 F L 101 H 18 94 L 01/31/18 07:30 97.5 F L 101 H 18 111/57 L 94 L Weight Admit Weight 160 lb 4.417 oz Weight 160 lb 8 oz Most Recent Monitor Data Heart Rate from ECG 117 NIBP 110/59 NIBP BP-Mean 69 Respiration from ECG 16 SpO2 100 I&O: 01/30/18 01/31/18 02/01/18 06:59 06:59 06:59 Intake Total 4322 4054 2041.2 Balance 4322 4054 2041.2 Result Diagrams: 01/28/18 05:03 01/30/18 04:40 EKG Reviewed by me: Yes (Tele SR/ST) Phys Exam - Physical Examination Constitutional: NAD Respiratory: no wheezing, no rhonchi Cardiovascular: RRR, no rub Gastrointestinal: soft, non-tender, positive bowel sounds Musculoskeletal: no edema Neurological: moves all 4 limbs Dx/Plan - Plan DVT proph w/SCDs IMPRESSION: 1. Acute on Chronic subdural hematoma - No Antiplatelets/Anticoag due to intracranial bleed 2. Sepsis UTI - ESBL E coli - on Meropenem - Prob present on admission 3. Swallow dysfunction - on modified diet/ PEG tube feed 4. Multiple decub ulcer present on admission - wound care following 5. Electrolyte abn (Hypokalemia/Hypophosphatemia/Hypomagnesemia) 6. Persistent sinus tachycardia - PE ruled out - HR improving 7. Other issues per previous notes PLAN: * Cont IVF to 1/2 NS with KCL * Await placement * Cont current meds as below * Change Metoprolol dose to 25 mg BID due to low BP Review of Systems - Review of Systems Respiratory: negative: Cough, Dry, Shortness of Breath, Hemoptysis, SOB with Excertion, Pleuritic Pain, Sputum, Wheezing Cardiovascular: negative: chest pain, palpitations, orthopnea, paroxysmal nocturnal dyspnea, edema, light headedness - Medications/Allergies Allergies/Adverse Reactions: Allergies Allergy/AdvReac Type Severity Reaction Status Date / Time No Known Allergies Allergy Verified 01/25/18 16:16 Medications: Current Medications Acetaminophen (Tylenol) 650 mg PO Q4H PRN PRN Reason: Headache/Fever or Pain Last Admin: 01/29/18 18:18 Dose: 650 mg Atorvastatin Calcium (Lipitor) 80 mg PO HS [facility] Last Admin: 01/30/18 22:55 Dose: 80 mg Hydralazine HCl (Apresoline) 10 mg SLOW IVP Q4H PRN PRN Reason: SBP GREATER THAN 160 Meropenem 1 gm/ Sterile Water 20 mls @ 240 mls/hr SLOW IVP 0200,1000,1800 [facility] Last Admin: 01/31/18 17:34 Dose: 20 mls Potassium Chloride/Sodium Chloride (1/2 Ns W/Kcl 20 Meq) 1,000 mls @ 50 mls/hr IV .Q20H [facility] Last Admin: 01/31/18 16:36 Dose: 1,000 mls Labetalol HCl (Normodyne) 10 mg SLOW IVP Q4H PRN PRN Reason: Systolic BP > 160 Metoprolol Tartrate (Lopressor) 50 mg PER TUBE BID [facility] Last Admin: 01/31/18 08:39 Dose: 50 mg Ondansetron HCl (Zofran Odt) 4 mg PO Q6H PRN PRN Reason: Nausea/Vomiting Ondansetron HCl (Zofran) 4 mg IVP Q6H PRN PRN Reason: Nausea/Vomiting Phosphorus (Kphos Neutral) 500 mg PO QID-WM [facility] Last Admin: 01/31/18 17:34 Dose: 500 mg Sodium Chloride (Flush - Normal Saline) 10 ml IVF Q12HR [facility] Last Admin: 01/31/18 08:41 Dose: Not Given Sodium Chloride (Flush - Normal Saline) 10 ml IVF PRN PRN PRN Reason: Saline Flush Last Admin: 01/29/18 02:44 Dose: 10 ml Tamsulosin HCl (Flomax) 0.4 mg PO DAILY [facility] Last Admin: 01/31/18 08:39 Dose: 0.4 mg
[2018-01-31] MEDS: Atorvastatin Calcium 40 MG TAB PO SCH (21:42)
[2018-01-31] MEDS: Metoprolol Tartrate 25 MG TAB PER TUBE SCH (21:42)
[2018-02-01 07:29] LABS: #Basophils 0.1 thou/uL (0.0-0.2); #Eosinphils 0.2 thou/uL (0.0-0.7); #Lymphocytes 2.5 thou/uL (1.20-3.40); #Monocytes 0.7 thou/uL (0.11-0.59); #Neutrophils 5.1 thou/uL (1.40-6.50); %Basophils 0.8 % (0.0-1.0); %Eosinophils 2.5 % (0.0-10.0); %Monocytes 7.7 % (0.0-10.0); Hemoglobin 12.1 g/dL (14.0-18.0); Mean Corpuscular HGB CONC 30.9 g/dL (32.0-36.0); Mean Corpuscular Hemoglobin 30.9 pg (27.0-31.0); Mean Corpuscular Volume 99.9 fl (80.0-94.0); Platelet Count 189 thou/uL (130-400); Red Blood Cell (RBC) Count 3.92 mill/uL (4.70-6.10); White Blood Cell (WBC) Count 8.4 thou/uL (4.8-10.8)
[2018-02-01 07:44] LABS: Albumin 2.3 g/dL (3.4-4.8); Anion Gap 14 mmol/L (10-20); BUN (Urea Nitrogen) 5 mg/dL (8.4-25.7); BUN/Creatinine Ratio 9.09; Calc. Creatinine Clearance 105 mL/min (70-130); Calcium 9.2 mg/dL (7.8-10.44); Carbon Dioxide 17 mmol/L (23-31); Chloride 109 mmol/L (98-107); Estimated GFR-MDRD Greater than 90; Glucose 92 mg/dL (83-110); Magnesium 1.8 mg/dL (1.6-2.6); Phosphorus 3.3 mg/dL (2.3-4.7); Potassium 4.5 mmol/L (3.5-5.1); Sodium 135 mmol/L (136-145)
[2018-02-01] MEDS: K-Phos Neutral 250 MG TAB PO SCH (08:46)
[2018-02-01] MEDS: Tamsulosin HCl 0.4 MG CAP PO SCH (08:46)
[2018-02-01] MEDS: Metoprolol Tartrate 25 MG TAB PER TUBE SCH ×2 (08:46→18:34)
[2018-02-01] MEDS: Meropenem 1 GM in Sterile Water 20 ML SLOW IVP SCH (11:06)
[2018-02-01] MEDS: 1/2 NS w/KCL 20 mEq 1,000 ML IV SCH (11:07)
--- NOTE | 2018-02-01 13:20 | EKG ---
Test Reason : Blood Pressure : / mmHG Vent. Rate : 125 BPM Atrial Rate : 125 BPM P-R Int : 128 ms QRS Dur : 070 ms QT Int : 310 ms P-R-T Axes : 049 -55 065 degrees QTc Int : 447 ms Sinus tachycardia with Fusion complexes Left anterior fascicular block Cannot rule out Inferior infarct (masked by fascicular block?) , age undetermined Abnormal ECG Confirmed by NATHAN WINTER ([id number]), continuity editor JYOTSNA POSADAS ([id number]) on 02/01/2018 1:20:22 PM Referred By: Confirmed By:NATHAN WINTER
[2018-02-01] MEDS ORDERED: Metoprolol Tartrate 25 MG TAB PER TUBE SCH (15:00)
--- NOTE | 2018-02-01 18:00 | PDOC.PN ---
- Subjective Encounter Start Date: 02/01/18 Encounter Start Time: 09:00 Patient seen and examined. No new complaints. No overnight events. No IV access per RN - Objective Resuscitation Status: Resuscitation Status DNR:Do Not Resuscitate MAR Reviewed: Yes Vital Signs & Weight: Vital Signs (12 hours) Temp Pulse Resp BP Pulse Ox 02/01/18 16:00 98.4 F 122 H 24 H 103/56 L 98 02/01/18 12:00 97.9 F 113 H 16 87/55 L 96 02/01/18 08:00 98.1 F 111 H 20 143/69 H 100 02/01/18 07:35 98.2 F 120 H 18 96 Weight Admit Weight 160 lb 4.417 oz Weight 157 lb 14.4 oz Most Recent Monitor Data Heart Rate from ECG 117 NIBP 110/59 NIBP BP-Mean 69 Respiration from ECG 16 SpO2 100 I&O: 01/31/18 02/01/18 02/02/18 06:59 06:59 06:59 Intake Total 4054 2791.2 1203 Balance 4054 2791.2 1203 Result Diagrams: 02/01/18 06:55 02/01/18 06:55 EKG Reviewed by me: Yes (Tele SR) Phys Exam - Physical Examination Constitutional: NAD Respiratory: no wheezing, no rhonchi Cardiovascular: RRR, no rub Gastrointestinal: soft, non-tender, positive bowel sounds PEG + Dx/Plan - Plan DVT proph w/SCDs IMPRESSION: 1. Acute on Chronic subdural hematoma - 2. Sepsis UTI - ESBL E coli - on Meropenem - Prob present on admission 3. Swallow dysfunction - on modified diet/ PEG tube feed 4. Multiple decub ulcer present on admission - wound care following 5. Electrolyte abn (Hypokalemia/Hypophosphatemia/Hypomagnesemia) 6. Persistent sinus tachycardia - PE ruled out - HR improving 7. Other issues per previous notes PLAN: * No Antiplatelets/Anticoag due to intracranial bleed * Change Meropenem to Bactrim due to lack of IV access * Await placement * Cont current meds as below * Cont Metoprolol 25 mg BID due to low BP Review of Systems - Review of Systems Respiratory: negative: Cough, Dry, Shortness of Breath, Hemoptysis, SOB with Excertion, Pleuritic Pain, Sputum, Wheezing Cardiovascular: negative: chest pain, palpitations, orthopnea, paroxysmal nocturnal dyspnea, edema, light headedness - Medications/Allergies Allergies/Adverse Reactions: Allergies Allergy/AdvReac Type Severity Reaction Status Date / Time No Known Allergies Allergy Verified 01/25/18 16:16 Medications: Current Medications Acetaminophen (Tylenol) 650 mg PO Q4H PRN PRN Reason: Headache/Fever or Pain Last Admin: 01/29/18 18:18 Dose: 650 mg Atorvastatin Calcium (Lipitor) 10 mg PER TUBE HS [facility] Hydralazine HCl (Apresoline) 10 mg SLOW IVP Q4H PRN PRN Reason: SBP GREATER THAN 160 Labetalol HCl (Normodyne) 10 mg SLOW IVP Q4H PRN PRN Reason: Systolic BP > 160 Metoprolol Tartrate (Lopressor) 25 mg PER TUBE BID [facility] Ondansetron HCl (Zofran Odt) 4 mg PO Q6H PRN PRN Reason: Nausea/Vomiting Ondansetron HCl (Zofran) 4 mg IVP Q6H PRN PRN Reason: Nausea/Vomiting Sodium Chloride (Flush - Normal Saline) 10 ml IVF Q12HR [facility] Last Admin: 02/01/18 08:45 Dose: Not Given Sodium Chloride (Flush - Normal Saline) 10 ml IVF PRN PRN PRN Reason: Saline Flush Last Admin: 01/29/18 02:44 Dose: 10 ml Tamsulosin HCl (Flomax) 0.4 mg PO DAILY [facility] Last Admin: 02/01/18 08:46 Dose: 0.4 mg Trimethoprim/Sulfamethoxazole (Bactrim Ss) 1 tab PER TUBE BID [facility]
[2018-02-01] MEDS: Atorvastatin Calcium 10 MG TAB PER TUBE SCH (23:05)
[2018-02-01] MEDS: Sulfameth/Trimethoprim SS 400-80MG TAB PER TUBE SCH (23:05)
[2018-02-02] MEDS: Sulfameth/Trimethoprim SS 400-80MG TAB PER TUBE SCH ×2 (10:05→22:02)
[2018-02-02] MEDS: Tamsulosin HCl 0.4 MG CAP PO SCH (10:05)
[2018-02-02] MEDS: Metoprolol Tartrate 25 MG TAB PER TUBE SCH ×2 (10:05→22:02)
[2018-02-02] MEDS: Acetaminophen 325 MG TAB PO PRN ×2 (10:17→16:30)
--- NOTE | 2018-02-02 14:21 | PDOC.PN ---
- Subjective Encounter Start Date: 02/02/18 Encounter Start Time: 09:30 PT seen and examined, chart reviewed in its entirety. Joslyn sis my first visit with this patient Mr Tiffany complains only of left knee pain. nursing reports he has regularly if he isnt positined right. No F/c, no N/V/D/C, no CP or SOB 10 point ROS performed and all neg x as above, unsure of reliability - Objective Resuscitation Status: Resuscitation Status DNR:Do Not Resuscitate MAR Reviewed: Yes Vital Signs & Weight: Vital Signs (12 hours) Temp Pulse Resp BP BP Pulse Ox 02/02/18 12:00 97.7 F 103 H 20 129/73 98 02/02/18 07:57 97.2 F L 121 H 20 123/76 96 02/02/18 04:00 97.9 F 117 H 18 115/64 98 Weight Admit Weight 160 lb 4.417 oz Weight 155 lb 2 oz Most Recent Monitor Data Heart Rate from ECG 117 NIBP 110/59 NIBP BP-Mean 69 Respiration from ECG 16 SpO2 100 I&O: 02/01/18 02/02/18 02/03/18 06:59 06:59 06:59 Intake Total 2791.2 1323 Balance 2791.2 1323 Result Diagrams: 02/01/18 06:55 02/01/18 06:55 Additional Labs: Accuchecks 02/02/18 12:07 POC Glucose 98 Radiology Reviewed by me: Yes EKG Reviewed by me: Yes Phys Exam - Physical Examination Constitutional: NAD HEENT: PERRLA, moist MMs, sclera anicteric, oral pharynx no lesions Neck: no nodes, no JVD, supple, full ROM Respiratory: no wheezing, no rales, no rhonchi, clear to auscultation bilateral diminished BS bilaterally Cardiovascular: RRR, no rub HSM 3/6 at apex Gastrointestinal: soft, non-tender, no distention, positive bowel sounds Musculoskeletal: no edema legs contracted, left knee miminally tender quadriparetic Lymphatic: no nodes Psychiatric: normal affect Skin: no rash, normal turgor, cap refill <2 seconds Dx/Plan (1) Benign prostatic hypertrophy Code(s): N40.0 - BENIGN PROSTATIC HYPERPLASIA WITHOUT LOWER URINRY TRACT SYMP Status: Acute Qualifiers: Lower urinary tract symptom presence: unspecified whether lower urinary tract symptoms present Qualified Code(s): N40.0 - Benign prostatic hyperplasia without lower urinary tract symptoms (2) Dementia Code(s): F03.90 - UNSPECIFIED DEMENTIA WITHOUT BEHAVIORAL DISTURBANCE Status: Acute Qualifiers: Dementia type: unspecified type Dementia behavioral disturbance: without behavioral disturbance Qualified Code(s): F03.90 - Unspecified dementia without behavioral disturbance (3) HLD (hyperlipidemia) Code(s): E78.5 - HYPERLIPIDEMIA, UNSPECIFIED Status: Acute Qualifiers: Hyperlipidemia type: unspecified Qualified Code(s): E78.5 - Hyperlipidemia , unspecified (4) HTN (hypertension) Code(s): I10 - ESSENTIAL (PRIMARY) HYPERTENSION Status: Chronic Qualifiers: Hypertension type: essential hypertension Qualified Code(s): I10 - Essential (primary) hypertension (5) History of CVA (cerebrovascular accident) Code(s): Z86.73 - PRSNL HX OF TIA (TIA), AND CEREB INFRC W/O RESID DEFICITS Status: Chronic (6) Stroke Code(s): I63.9 - CEREBRAL INFARCTION, UNSPECIFIED Status: Acute Qualifiers: CVA mechanism: thrombosis Laterality of affected vessel: bilateral (7) TIA (transient ischemic attack) Status: Acute Qualifiers: Transient cerebral ischemia type: unspecified Qualified Code(s): G45.9 - Transient cerebral ischemic attack, unspecified (8) Ventricular tachycardia seen on phototypesetting equipment monitor Code(s): I47.2 - VENTRICULAR TACHYCARDIA Status: Resolved (9) 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 to SNF/LTC when arranged and approved.
[2018-02-02] MEDS: Atorvastatin Calcium 10 MG TAB PER TUBE SCH (22:02)
[2018-02-03] MEDS: Tamsulosin HCl 0.4 MG CAP PO SCH (08:47)
[2018-02-03] MEDS: Sulfameth/Trimethoprim SS 400-80MG TAB PER TUBE SCH ×2 (08:47→21:31)
[2018-02-03] MEDS: Metoprolol Tartrate 25 MG TAB PER TUBE SCH ×2 (08:48→21:30)
[2018-02-03] MEDS: Acetaminophen 325 MG TAB PO PRN (09:34)
--- NOTE | 2018-02-03 17:21 | PDOC.PN ---
- Subjective Encounter Start Date: 02/03/18 Encounter Start Time: 09:30 Patient seen and examined. No new complaints. No overnight events. No new focal deficits - Objective Resuscitation Status: Resuscitation Status DNR:Do Not Resuscitate MAR Reviewed: Yes Vital Signs & Weight: Vital Signs (12 hours) Temp Pulse Resp BP Pulse Ox 02/03/18 16:00 98.6 F 124 H 18 109/52 L 100 02/03/18 11:47 99.1 F 111 H 14 94/50 L 98 02/03/18 08:00 98.0 F 120 H 14 99 02/03/18 07:47 98.0 F 120 H 14 101/58 L 99 Weight Admit Weight 160 lb 4.417 oz Weight 151 lb 3 oz Most Recent Monitor Data Heart Rate from ECG 117 NIBP 110/59 NIBP BP-Mean 69 Respiration from ECG 16 SpO2 100 I&O: 02/02/18 02/03/18 02/04/18 06:59 06:59 06:59 Intake Total 1323 1720 720 Balance 1323 1720 720 Result Diagrams: 02/01/18 06:55 02/01/18 06:55 EKG Reviewed by me: Yes (Tele ST) Phys Exam - Physical Examination Constitutional: NAD Respiratory: no wheezing, no rhonchi Cardiovascular: RRR, no rub tachycardic Gastrointestinal: soft, non-tender, positive bowel sounds PEG + Dx/Plan - Plan DVT proph w/SCDs IMPRESSION: 1. Acute on Chronic subdural hematoma 2. Sepsis UTI - E coli - on Bactrim - Prob present on admission 3. Swallow dysfunction - on modified diet/ PEG tube feed 4. Multiple decub ulcer present on admission - wound care following 5. Electrolyte abn (Hypokalemia/Hypophosphatemia/Hypomagnesemia) - improving 6. Persistent sinus tachycardia - PE ruled out - HR improving - on Metoprolol 7. Other issues per previous notes PLAN: * No Antiplatelets/Anticoag due to intracranial bleed * Con Atbx * Await placement * Cont current meds as below * Cont Metoprolol 25 mg BID * Add PRN Cardizem PO for sustained tachycardia. Review of Systems - Review of Systems Respiratory: negative: Cough, Dry, Shortness of Breath, Hemoptysis, SOB with Excertion, Pleuritic Pain, Sputum, Wheezing Cardiovascular: negative: chest pain, palpitations, orthopnea, paroxysmal nocturnal dyspnea, edema, light headedness - Medications/Allergies Allergies/Adverse Reactions: Allergies Allergy/AdvReac Type Severity Reaction Status Date / Time No Known Allergies Allergy Verified 01/25/18 16:16 Medications: Current Medications Acetaminophen (Tylenol) 650 mg PO Q4H PRN PRN Reason: Headache/Fever or Pain Last Admin: 02/03/18 09:34 Dose: 650 mg Atorvastatin Calcium (Lipitor) 10 mg PER TUBE HS [facility] Last Admin: 02/02/18 22:02 Dose: 10 mg Diltiazem HCl (Cardizem) 30 mg PO Q6HR PRN PRN Reason: HR >120 sustained Hydralazine HCl (Apresoline) 10 mg SLOW IVP Q4H PRN PRN Reason: SBP GREATER THAN 160 Labetalol HCl (Normodyne) 10 mg SLOW IVP Q4H PRN PRN Reason: Systolic BP > 160 Metoprolol Tartrate (Lopressor) 25 mg PER TUBE BID [facility] Last Admin: 02/03/18 08:48 Dose: 25 mg Ondansetron HCl (Zofran Odt) 4 mg PO Q6H PRN PRN Reason: Nausea/Vomiting Ondansetron HCl (Zofran) 4 mg IVP Q6H PRN PRN Reason: Nausea/Vomiting Sodium Chloride (Flush - Normal Saline) 10 ml IVF Q12HR [facility] Last Admin: 02/03/18 09:07 Dose: Not Given Sodium Chloride (Flush - Normal Saline) 10 ml IVF PRN PRN PRN Reason: Saline Flush Last Admin: 01/29/18 02:44 Dose: 10 ml Tamsulosin HCl (Flomax) 0.4 mg PO DAILY [facility] Last Admin: 02/03/18 08:47 Dose: 0.4 mg Trimethoprim/Sulfamethoxazole (Bactrim Ss) 1 tab PER TUBE BID [facility] Last Admin: 02/03/18 08:47 Dose: 1 tab
[2018-02-03] MEDS: Atorvastatin Calcium 10 MG TAB PER TUBE SCH (21:30)
[2018-02-04] MEDS: Acetaminophen 325 MG TAB PO PRN ×2 (01:24→21:44)
[2018-02-04 06:39] LABS: #Basophils 0.1 thou/uL (0.0-0.2); #Eosinphils 0.3 thou/uL (0.0-0.7); #Lymphocytes 3.3 thou/uL (1.20-3.40); %Basophils 1.1 % (0.0-1.0); %Lymphocytes 31.1 % (21.0-51.0); %Neutrophils 55.8 % (42.0-75.0); Mean Corpuscular HGB CONC 31.6 g/dL (32.0-36.0); Mean Corpuscular Hemoglobin 30.9 pg (27.0-31.0); Mean Corpuscular Volume 98.1 fl (80.0-94.0); Mean Platelet Volume 6.6 fL (7.4-10.4); Platelet Count 251 thou/uL (130-400); RBC Distribution Width 16.3 % (11.5-14.5); Red Blood Cell (RBC) Count 3.55 mill/uL (4.70-6.10); White Blood Cell (WBC) Count 10.7 thou/uL (4.8-10.8)
[2018-02-04 06:53] LABS: Anion Gap 10 mmol/L (10-20); BUN (Urea Nitrogen) 9 mg/dL (8.4-25.7); Calc. Creatinine Clearance 79 mL/min (70-130); Calcium 9.6 mg/dL (7.8-10.44); Carbon Dioxide 24 mmol/L (23-31); Chloride 105 mmol/L (98-107); Estimated GFR-MDRD Greater than 90; Glucose 92 mg/dL (83-110); Magnesium 1.9 mg/dL (1.6-2.6); Phosphorus 3.2 mg/dL (2.3-4.7); Potassium 4.1 mmol/L (3.5-5.1); Sodium 135 mmol/L (136-145)
[2018-02-04] MEDS: Metoprolol Tartrate 25 MG TAB PER TUBE SCH ×2 (09:35→21:44)
[2018-02-04] MEDS: Tamsulosin HCl 0.4 MG CAP PO SCH (09:35)
[2018-02-04] MEDS: Sulfameth/Trimethoprim SS 400-80MG TAB PER TUBE SCH (09:36)
[2018-02-04] MEDS ORDERED: Meropenem 1 GM in Sodium Chloride 0.9% 100 ML IVPB SCH (10:30)
[2018-02-04] MEDS: Sodium Chloride 0.9% 1,000 ML IV SCH ×2 (11:40→22:39)
[2018-02-04] MEDS: Meropenem 1 GM in Sterile Water 20 ML SLOW IVP SCH ×2 (12:11→21:45)
[2018-02-04 12:17] LABS: Lactic Acid 2.4 mmol/L (0.5-2.2)
--- NOTE | 2018-02-04 13:29 | PDOC.PN ---
- Subjective Encounter Start Date: 02/04/18 Encounter Start Time: 11:10 Patient seen and examined. left knee pain. No overnight events - Objective Resuscitation Status: Resuscitation Status DNR:Do Not Resuscitate MAR Reviewed: Yes Vital Signs & Weight: Vital Signs (12 hours) Temp Pulse Resp BP BP Pulse Ox 02/04/18 12:00 98.2 F 114 H 18 115/55 L 97 02/04/18 08:00 96.7 F L 112 H 18 98 02/04/18 07:57 96.7 F L 112 H 18 102/55 L 98 02/04/18 04:00 97.7 F 110 H 18 105/58 L 97 Weight Admit Weight 160 lb 4.417 oz Weight 149 lb 7 oz Most Recent Monitor Data Heart Rate from ECG 117 NIBP 110/59 NIBP BP-Mean 69 Respiration from ECG 16 SpO2 100 I&O: 02/03/18 02/04/18 02/05/18 06:59 06:59 06:59 Intake Total 1720 1457 Balance 1720 1457 Result Diagrams: 02/04/18 06:31 02/04/18 06:31 EKG Reviewed by me: Yes (Tele ST) Phys Exam - Physical Examination Constitutional: NAD Respiratory: no wheezing, no rales, no rhonchi Cardiovascular: RRR, no rub Gastrointestinal: soft, non-tender, positive bowel sounds Musculoskeletal: no edema no palpable tenderness over left knee Dx/Plan - Plan DVT proph w/SCDs IMPRESSION: 1. Acute on Chronic subdural hematoma 2. Sepsis UTI - E coli - on Bactrim - Prob present on admission 3. Swallow dysfunction - on modified diet/ PEG tube feed 4. Multiple decub ulcer present on admission - wound care following 5. Electrolyte abn (Hypokalemia/Hypophosphatemia/Hypomagnesemia) - improving 6. Persistent sinus tachycardia - PE ruled out - HR improving - on Metoprolol 7. Physical deconditioning / DJD / Lactic acidosis prob due to poor oral intake 8. Other issues per previous notes PLAN: * No Antiplatelets/Anticoag due to intracranial bleed * Cont Meropenem * Restart IVF due to poor appetite/persistent tachycardia * Await placement * Cont current meds as below * Cont Metoprolol 25 mg BID Laboratory Tests 02/04/18 02/04/18 06:31 11:38 Lactic Acid 2.4 H Phosphorus 3.2 Magnesium 1.9 Review of Systems - Review of Systems Respiratory: negative: Cough, Dry, Shortness of Breath, Hemoptysis, SOB with Excertion, Pleuritic Pain, Sputum, Wheezing Cardiovascular: negative: chest pain, palpitations, orthopnea, paroxysmal nocturnal dyspnea, edema, light headedness Gastrointestinal: negative: Nausea, Vomiting, Abdominal Pain, Diarrhea, Constipation, Melena, Hematochezia - Medications/Allergies Allergies/Adverse Reactions: Allergies Allergy/AdvReac Type Severity Reaction Status Date / Time No Known Allergies Allergy Verified 01/25/18 16:16 Medications: Current Medications Acetaminophen (Tylenol) 650 mg PO Q4H PRN PRN Reason: Headache/Fever or Pain Last Admin: 02/04/18 01:24 Dose: 650 mg Atorvastatin Calcium (Lipitor) 10 mg PER TUBE HS [facility] Last Admin: 02/03/18 21:30 Dose: 10 mg Diltiazem HCl (Cardizem) 30 mg PO Q6HR PRN PRN Reason: HR >120 sustained Hydralazine HCl (Apresoline) 10 mg SLOW IVP Q4H PRN PRN Reason: SBP GREATER THAN 160 Sodium Chloride (Normal Saline 0.9%) 1,000 mls @ 75 mls/hr IV .[id number] [facility] Last Admin: 02/04/18 11:40 Dose: 1,000 mls Meropenem 1 gm/ Sterile Water 20 mls @ 240 mls/hr SLOW IVP 0400,1200,2000 [facility] Last Admin: 02/04/18 12:11 Dose: 20 mls Labetalol HCl (Normodyne) 10 mg SLOW IVP Q4H PRN PRN Reason: Systolic BP > 160 Metoprolol Tartrate (Lopressor) 25 mg PER TUBE BID [facility] Last Admin: 02/04/18 09:35 Dose: 25 mg Miscellaneous Medication (Pharmacy To Dose) 1 each IVPB PRN PRN PRN Reason: Pharmacy to dose Ondansetron HCl (Zofran Odt) 4 mg PO Q6H PRN PRN Reason: Nausea/Vomiting Ondansetron HCl (Zofran) 4 mg IVP Q6H PRN PRN Reason: Nausea/Vomiting Sodium Chloride (Flush - Normal Saline) 10 ml IVF Q12HR [facility] Last Admin: 02/04/18 09:49 Dose: Not Given Sodium Chloride (Flush - Normal Saline) 10 ml IVF PRN PRN PRN Reason: Saline Flush Last Admin: 01/29/18 02:44 Dose: 10 ml Tamsulosin HCl (Flomax) 0.4 mg PO DAILY [facility] Last Admin: 02/04/18 09:35 Dose: 0.4 mg
[2018-02-04] MEDS: Atorvastatin Calcium 10 MG TAB PER TUBE SCH (21:44)
[2018-02-05] MEDS: Meropenem 1 GM in Sterile Water 20 ML SLOW IVP SCH ×3 (05:59→21:52)
[2018-02-05] MEDS: Acetaminophen 650 MG/20.3 ML UDCUP PER TUBE SCH ×3 (10:02→21:52)
[2018-02-05] MEDS: Tamsulosin HCl 0.4 MG CAP PO SCH (10:02)
[2018-02-05] MEDS: Metoprolol Tartrate 25 MG TAB PER TUBE SCH ×2 (12:25→21:52)
[2018-02-05] MEDS ORDERED: Vancomycin HCl 25 MG/ML Oral PO SCH (14:45)
[2018-02-05] MEDS: Sodium Chloride 0.9% 1,000 ML IV SCH (17:18)
[2018-02-05] MEDS: Vancomycin HCl 25 MG/ML Oral PO SCH ×2 (18:03→21:58)
--- NOTE | 2018-02-05 20:27 | PDOC.PN ---
- Subjective Encounter Start Date: 02/05/18 Encounter Start Time: 12:00 Patient seen and examined. No new complaints. No overnight events - Objective Resuscitation Status: Resuscitation Status DNR:Do Not Resuscitate MAR Reviewed: Yes Vital Signs & Weight: Vital Signs (12 hours) Temp Pulse Resp BP BP Pulse Ox 02/05/18 19:30 96.7 F L 128 H 16 120/57 L 98 02/05/18 15:58 98 F 109 H 16 81/53 L 100 02/05/18 11:58 97.6 F 124 H 18 111/61 100 Weight Admit Weight 160 lb 4.417 oz Weight 147 lb Most Recent Monitor Data Heart Rate from ECG 117 NIBP 110/59 NIBP BP-Mean 69 Respiration from ECG 16 SpO2 100 I&O: 02/04/18 02/05/18 02/06/18 06:59 06:59 06:59 Intake Total 1457 4783 2760 Balance 1457 4783 2760 Result Diagrams: 02/04/18 06:31 02/04/18 06:31 EKG Reviewed by me: Yes (Tele ST) Phys Exam - Physical Examination Constitutional: NAD Respiratory: no wheezing, no rhonchi Cardiovascular: RRR, no rub Gastrointestinal: soft, non-tender, positive bowel sounds Dx/Plan - Plan DVT proph w/SCDs IMPRESSION: 1. Acute on Chronic subdural hematoma 2. Cdiff colitis 3. Swallow dysfunction - on modified diet/ PEG tube feed 4. Multiple decub ulcer present on admission - wound care following 5. Electrolyte abn (Hypokalemia/Hypophosphatemia/Hypomagnesemia) - improving 6. Sepsis UTI - E coli - on Bactrim - Prob present on admission - completed Atbx 7. Physical deconditioning / DJD / Lactic acidosis prob due to poor oral intake/ Persistent sinus tachycardia - PE ruled out - HR improving - on Metoprolol 25 mg BID 8. Other issues per previous notes PLAN: * Add Vancomycin PO for Cdiff * DC Meropenem in AM * No Antiplatelets/Anticoag due to intracranial bleed * Cont IVF * Await placement * Cont current meds as below Review of Systems - Review of Systems Respiratory: negative: Cough, Dry, Shortness of Breath, Hemoptysis, SOB with Excertion, Pleuritic Pain, Sputum, Wheezing Cardiovascular: negative: chest pain, palpitations, orthopnea, paroxysmal nocturnal dyspnea, edema, light headedness - Medications/Allergies Allergies/Adverse Reactions: Allergies Allergy/AdvReac Type Severity Reaction Status Date / Time No Known Allergies Allergy Verified 01/25/18 16:16 Medications: Current Medications Acetaminophen (Tylenol) 650 mg PO Q4H PRN PRN Reason: Headache/Fever or Pain Last Admin: 02/04/18 21:44 Dose: 650 mg Acetaminophen (Tylenol Elixir) 650 mg PER TUBE TID [facility] Last Admin: 02/05/18 15:48 Dose: 650 mg Atorvastatin Calcium (Lipitor) 10 mg PER TUBE HS [facility] Last Admin: 02/04/18 21:44 Dose: 10 mg Diltiazem HCl (Cardizem) 30 mg PO Q6HR PRN PRN Reason: HR >120 sustained Hydralazine HCl (Apresoline) 10 mg SLOW IVP Q4H PRN PRN Reason: SBP GREATER THAN 160 Sodium Chloride (Normal Saline 0.9%) 1,000 mls @ 75 mls/hr IV .[id number] [facility] Last Admin: 02/05/18 17:18 Dose: 1,000 mls Meropenem 1 gm/ Sterile Water 20 mls @ 240 mls/hr SLOW IVP 0400,1200,2000 [facility] Last Admin: 02/05/18 12:43 Dose: 20 mls Labetalol HCl (Normodyne) 10 mg SLOW IVP Q4H PRN PRN Reason: Systolic BP > 160 Metoprolol Tartrate (Lopressor) 25 mg PER TUBE BID [facility] Last Admin: 02/05/18 12:25 Dose: Not Given Miscellaneous Medication (Pharmacy To Dose) 1 each IVPB PRN PRN PRN Reason: Pharmacy to dose Ondansetron HCl (Zofran Odt) 4 mg PO Q6H PRN PRN Reason: Nausea/Vomiting Ondansetron HCl (Zofran) 4 mg IVP Q6H PRN PRN Reason: Nausea/Vomiting Sodium Chloride (Flush - Normal Saline) 10 ml IVF Q12HR [facility] Last Admin: 02/05/18 10:03 Dose: Not Given Sodium Chloride (Flush - Normal Saline) 10 ml IVF PRN PRN PRN Reason: Saline Flush Last Admin: 01/29/18 02:44 Dose: 10 ml Tamsulosin HCl (Flomax) 0.4 mg PO DAILY [facility] Last Admin: 02/05/18 10:02 Dose: 0.4 mg Vancomycin HCl (First Vancomycin) 125 mg PO Q6HR [facility] Last Admin: 02/05/18 18:03 Dose: 125 mg
[2018-02-05] MEDS: Atorvastatin Calcium 10 MG TAB PER TUBE SCH (21:53)
[2018-02-06] MEDS: Vancomycin HCl 25 MG/ML Oral PO SCH ×3 (06:38→18:18)
[2018-02-06] MEDS: Meropenem 1 GM in Sterile Water 20 ML SLOW IVP SCH (06:39)
[2018-02-06] MEDS: Sodium Chloride 0.9% 1,000 ML IV SCH (07:59)
[2018-02-06 08:17] VITALS: BMI 20.2
[2018-02-06] MEDS: Saccharomyces boulardii 250 MG CAP PER TUBE SCH (09:26)
[2018-02-06] MEDS: Tamsulosin HCl 0.4 MG CAP PO SCH (09:26)
[2018-02-06] MEDS: Metoprolol Tartrate 25 MG TAB PER TUBE SCH ×2 (09:26→20:42)
[2018-02-06] MEDS: Acetaminophen 650 MG/20.3 ML UDCUP PER TUBE SCH ×3 (09:26→20:42)
[2018-02-06] MEDS: Atorvastatin Calcium 10 MG TAB PER TUBE SCH (20:42)
--- NOTE | 2018-02-06 22:00 | PDOC.PN ---
- Subjective Encounter Start Date: 02/06/18 Encounter Start Time: 09:00 Patient seen and examined. No new complaints. No overnight events - Objective Resuscitation Status: Resuscitation Status DNR:Do Not Resuscitate MAR Reviewed: Yes Vital Signs & Weight: Vital Signs (12 hours) Temp Pulse Resp BP BP BP Pulse Ox 02/06/18 20:35 97.5 F L 118 H 16 112/59 L 96 02/06/18 16:50 108 H 104/70 02/06/18 15:57 97.8 F 113 H 14 82/55 L 100 02/06/18 12:00 97.5 F L 102 H 14 122/61 100 Weight Admit Weight 160 lb 4.417 oz Weight 149 lb 4.8 oz Most Recent Monitor Data Heart Rate from ECG 117 NIBP 110/59 NIBP BP-Mean 69 Respiration from ECG 16 SpO2 100 I&O: 02/05/18 02/06/18 02/07/18 06:59 06:59 06:59 Intake Total 4783 3060 2442 Balance 4783 3060 2442 Result Diagrams: 02/07/18 05:35 02/07/18 05:35 EKG Reviewed by me: Yes (Tele SR) Phys Exam - Physical Examination Constitutional: NAD Respiratory: no wheezing, no rhonchi Cardiovascular: RRR, no rub Gastrointestinal: soft, positive bowel sounds Dx/Plan - Plan DVT proph w/SCDs IMPRESSION: 1. Acute on Chronic subdural hematoma 2. Cdiff colitis - on Vancomycin 3. Swallow dysfunction - on modified diet with intermittent PEG tube feeding 4. Multiple decub ulcer present on admission - wound care following 5. Electrolyte abn (Hypokalemia/Hypophosphatemia/Hypomagnesemia) - improving 6. Sepsis UTI - E coli - on Bactrim - Prob present on admission - completed Atbx 7. Physical deconditioning / DJD / Lactic acidosis prob due to poor oral intake/ Persistent sinus tachycardia - PE ruled out - HR improving - on Metoprolol 25 mg BID 8. Other issues per previous notes PLAN: * Cont Vancomycin PO for Cdiff * No Antiplatelets/Anticoag due to intracranial bleed * DC IVF - Pt has no IV access * Will increase water flushes - PEG * Await placement * Cont current meds as below Review of Systems - Review of Systems Respiratory: negative: Cough, Dry, Shortness of Breath, Hemoptysis, SOB with Excertion, Pleuritic Pain, Sputum, Wheezing Cardiovascular: negative: chest pain, palpitations, orthopnea, paroxysmal nocturnal dyspnea, edema, light headedness - Medications/Allergies Allergies/Adverse Reactions: Allergies Allergy/AdvReac Type Severity Reaction Status Date / Time No Known Allergies Allergy Verified 01/25/18 16:16 Medications: Current Medications Acetaminophen (Tylenol) 650 mg PO Q4H PRN PRN Reason: Headache/Fever or Pain Last Admin: 02/04/18 21:44 Dose: 650 mg Acetaminophen (Tylenol Elixir) 650 mg PER TUBE TID [facility] Last Admin: 02/06/18 20:42 Dose: 650 mg Atorvastatin Calcium (Lipitor) 10 mg PER TUBE HS [facility] Last Admin: 02/06/18 20:42 Dose: 10 mg Diltiazem HCl (Cardizem) 30 mg PO Q6HR PRN PRN Reason: HR >120 sustained Hydralazine HCl (Apresoline) 10 mg SLOW IVP Q4H PRN PRN Reason: SBP GREATER THAN 160 Labetalol HCl (Normodyne) 10 mg SLOW IVP Q4H PRN PRN Reason: Systolic BP > 160 Metoprolol Tartrate (Lopressor) 25 mg PER TUBE BID [facility] Last Admin: 02/06/18 20:42 Dose: 25 mg Miscellaneous Medication (Pharmacy To Dose) 1 each IVPB PRN PRN PRN Reason: Pharmacy to dose Ondansetron HCl (Zofran Odt) 4 mg PO Q6H PRN PRN Reason: Nausea/Vomiting Ondansetron HCl (Zofran) 4 mg IVP Q6H PRN PRN Reason: Nausea/Vomiting Saccharomyces Boulardii (Florastor) 250 mg PER TUBE DAILY [facility] Last Admin: 02/06/18 09:26 Dose: 250 mg Sodium Chloride (Flush - Normal Saline) 10 ml IVF Q12HR [facility] Last Admin: 02/06/18 20:43 Dose: Not Given Sodium Chloride (Flush - Normal Saline) 10 ml IVF PRN PRN PRN Reason: Saline Flush Last Admin: 01/29/18 02:44 Dose: 10 ml Tamsulosin HCl (Flomax) 0.4 mg PO DAILY [facility] Last Admin: 02/06/18 09:26 Dose: 0.4 mg Vancomycin HCl (First Vancomycin) 125 mg PO Q6HR [facility] Last Admin: 02/06/18 18:18 Dose: 125 mg
[2018-02-07] MEDS: Vancomycin HCl 25 MG/ML Oral PO SCH ×3 (00:10→12:24)
[2018-02-07 05:43] LABS: #Basophils 0.1 thou/uL (0.0-0.2); #Eosinphils 0.4 thou/uL (0.0-0.7); #Lymphocytes 3.9 thou/uL (1.20-3.40); #Monocytes 0.8 thou/uL (0.11-0.59); %Basophils 0.9 % (0.0-1.0); %Eosinophils 3.8 % (0.0-10.0); %Lymphocytes 38.2 % (21.0-51.0); %Monocytes 7.9 % (0.0-10.0); %Neutrophils 49.2 % (42.0-75.0); Mean Corpuscular HGB CONC 31.6 g/dL (32.0-36.0); Mean Corpuscular Hemoglobin 31.2 pg (27.0-31.0); Mean Corpuscular Volume 98.7 fl (80.0-94.0); Mean Platelet Volume 6.5 fL (7.4-10.4); Platelet Count 277 thou/uL (130-400); RBC Distribution Width 16.3 % (11.5-14.5); Red Blood Cell (RBC) Count 3.53 mill/uL (4.70-6.10); White Blood Cell (WBC) Count 10.1 thou/uL (4.8-10.8)
[2018-02-07 05:51] LABS: Albumin 3.1 g/dL (3.4-4.8); Anion Gap 10 mmol/L (10-20); BUN (Urea Nitrogen) 11 mg/dL (8.4-25.7); BUN/Creatinine Ratio 18.03; Calc. Creatinine Clearance 89 mL/min (70-130); Calcium 9.8 mg/dL (7.8-10.44); Carbon Dioxide 27 mmol/L (23-31); Chloride 104 mmol/L (98-107); Estimated GFR-MDRD Greater than 90; Glucose 93 mg/dL (83-110); Phosphorus 2.6 mg/dL (2.3-4.7); Potassium 4.4 mmol/L (3.5-5.1); Sodium 137 mmol/L (136-145)
[2018-02-07] MEDS: Tamsulosin HCl 0.4 MG CAP PO SCH (10:06)
[2018-02-07] MEDS: Acetaminophen 650 MG/20.3 ML UDCUP PER TUBE SCH (10:06)
[2018-02-07] MEDS: Metoprolol Tartrate 25 MG TAB PER TUBE SCH (10:06)
[2018-02-07] MEDS: Saccharomyces boulardii 250 MG CAP PER TUBE SCH (10:06)
--- NOTE | 2018-02-07 10:08 | PDOC.PN ---
- Subjective Encounter Start Date: 02/07/18 Encounter Start Time: 08:40 no acute night events - Objective Resuscitation Status: Resuscitation Status DNR:Do Not Resuscitate Vital Signs & Weight: Vital Signs (12 hours) Temp Pulse Resp BP BP BP Pulse Ox 02/07/18 08:00 98.2 F 117 H 14 116/76 100 02/07/18 06:10 97.3 F L 115 H 18 105/56 L 02/07/18 00:10 98.4 F 105 H 14 94/52 L 97 Weight Admit Weight 160 lb 4.417 oz Weight 141 lb Most Recent Monitor Data Heart Rate from ECG 117 NIBP 110/59 NIBP BP-Mean 69 Respiration from ECG 16 SpO2 100 I&O: 02/06/18 02/07/18 02/08/18 06:59 06:59 06:59 Intake Total 3060 3922 Balance 3060 3922 Result Diagrams: 02/07/18 05:35 02/07/18 05:35 Phys Exam - Physical Examination Constitutional: NAD HEENT: PERRLA Neck: no nodes, no JVD, supple Respiratory: no wheezing, clear to auscultation bilateral Cardiovascular: no significant murmur, no rub Gastrointestinal: soft, non-tender Musculoskeletal: pulses present Dx/Plan (1) Acute on chronic intracranial subdural hematoma Code(s): I62.01 - NONTRAUMATIC ACUTE SUBDURAL HEMORRHAGE; I62.03 - NONTRAUMATIC CHRONIC SUBDURAL HEMORRHAGE Status: Acute (2) C. difficile colitis Status: Acute (3) Swallowing dysfunction Code(s): R13.10 - DYSPHAGIA, UNSPECIFIED Status: Acute (4) Decubital ulcer Code(s): L89.90 - PRESSURE ULCER OF UNSPECIFIED SITE, UNSPECIFIED STAGE Status : Acute (5) UTI (urinary tract infection) Status: Acute - Plan cont current plan of care, continue antibiotics, social services assistant * . pending placement continue PO vanc feedings per PEG and by mouth completed Abx for MDRO [place] supportive care mgmt
[2018-02-07 11:58] VITALS: BP 138/60; TEMP 97.8
--- NOTE | 2018-02-07 19:14 | DIS ---
DISCHARGE DIAGNOSES: 1. Acute on chronic subdural hematoma. 2. Clostridium difficile colitis. 3. Swallow dysfunction. 4. Multiple decubitus ulcers present on admission. 5. Electrolyte imbalance. 6. Secondary to multidrug resistant urinary tract infection. 7. Physical deconditioning. HOSPITAL COURSE: While the patient was in hospital, the patient was monitored closely due to acute o n chronic subdural hematoma with INR of 4.9. No surgical interventions were required. Obviously, e Coumadin was held. INR had improved. Patient's hematoma was stable. No further intervention requ ired from this point of view. Patient was also found to have urinary tract infection with sepsis req uiring IV antibiotics. Patient was found to have multidrug-resistant organism requiring IV antibioti cs with meropenem, for which the patient completed while here in the hospital. The patient also has some tachycardia, which was unexplained; therefore, further workup was done. The patient was found t o have C. diff colitis. The patient was started on oral vancomycin, for which the patient has been t olerating. Patient has been afebrile with no leukocytosis. Because of all of this, it was felt that the patient will require skilled nurse facility; therefore, Social Work was consulted to assess for placement. The patient was later proved, therefore, we were comfortable discharging the patient to [facility] for continued care with vancomycin to complete a 14-day course of the antibiotics. DISPOSITION: retirement facility. DISCHARGE CONDITION: Much improved when he first came in. DISCHARGE ACTIVITY: As tolerated. DISCHARGE MEDICATIONS: Please see home reconciled medication list. DISCHARGE DIET: Tube feedings with oral feed as well as oral regular diet. FOLLOWUP APPOINTMENT: Patient will follow primary care physician in 1 week. DISCHARGE PLAN: Discharge plan was greater than 30 minutes.
--- NOTE | 2018-02-11 11:15 | PQF ---
NORRIS ROCHE PROSPERITY U MD [id number] [address] [place] [address] [id number] CLINICAL DOCUMENTATION CLARIFICATION FORM: POST DISCHARGE DATE: 02/11/18 ATTN: DR JOHN Please exercise your independent, professional judgment in responding to the clarification form. Clinical indicators are provided on the bottom of this form for your review Please check appropriate box(s): [ ] UTI please specify if due to or related to (as applicable): [ ] Indwelling catheter [ ] Self-catheterization [ ] Suprapubic catheter [ ] Unable to determine etiology UTI Site: [ ] Kidney [ ] Ureter [ ] Bladder [ ] Urethra [ ] Unable to determine Specify Organism (if known): [ ] Unknown organism [ ] Contaminated urine specimen without UTI [ ] Other diagnosis [ ] Unable to determine In addition, please specify: Present on Admission (POA): [ ] Yes [ ] No [ ] Unable to determine For continuity of documentation, please document condition throughout progress notes and discharge summary. Thank You. CLINICAL INDICATORS - SIGNS / SYMPTOMS / LABS Positive urinalysis Fever Documentation: UTI RISK FACTORS History self-cath/indwelling catheter Debility TREATMENT: Antibiotics IVF Joseph cath removed / changed DOCUMENTATION IN H&P OF: "....PATIENT SHOWED SIGNIFICANT EVIDENCE OF UTI INDICATED BY [place] JOSEPH THAT WAS REMOVED WITH THE GLANS PENIS COVERED WITH PUS " (This form is maintained as a part of the permanent medical record) 2014 [employer]. All Rights Reserved [email or web address] [phone] [email or web address]
--- NOTE | 2018-02-20 08:15 | PQF ---
NORRIS ROCHEMIGUELANGEL [id number] [facility] [id number] [id number] CLINICAL DOCUMENTATION CLARIFICATION FORM: POST DISCHARGE Addendum to original discharge summary date: ____ Late entry note date: __ DATE: 02/20/18 ATTN: DR OWUSU Please exercise your independent, professional judgment in responding to the clarification form. Clinical indicators are provided on the bottom of this form for your review Please check appropriate box(s): [ ] UTI please specify if due to or related to (as applicable): [ ] Indwelling catheter [ ] Self-catheterization [ ] Suprapubic catheter [ ] Unable to determine etiology UTI Site: [ ] Kidney [ ] Ureter [ ] Bladder [ ] Urethra [ ] Unable to determine Specify Organism (if known): [ ] Unknown organism [ ] Contaminated urine specimen without UTI [ ] Other diagnosis [ ] Unable to determine In addition, please specify: Present on Admission (POA): [ ] Yes [ ] No [ ] Unable to determine For continuity of documentation, please document condition throughout progress notes and discharge summary. Thank You. CLINICAL INDICATORS - SIGNS / SYMPTOMS / LABS Positive urinalysis Fever Documentation: UTI RISK FACTORS History self-cath/indwelling catheter Debility TREATMENT: Antibiotics IVF Joseph cath removed / changed DOCUMENTATION IN H&P OF: "...PATIENT SHOWED SIGNIFICANT EVIDENCE OF UTI INDICATED BY [place] JOSEPH THAT WAS REMOVED WITH THE GLANS PENIS COVERED WITH PUS " (This form is maintained as a part of the permanent medical record) 2014 [employer]. All Rights Reserved [email or web address] [phone] [email or web address]
== END 2018-02-07 14:44 | DRG 871 ==
LOC: ERS 12:36 → CCU 16:40 → 2SE 01-26 10:50
PROVIDERS: ADMIT Internal Medicine Nephrology; ATTEND Internal Medicine Nephrology
PROC: 30233K1 Transfusion of Nonautologous Frozen Plasma into Peripheral Vein, Percutaneous Approach (ICD-10-PCS; principal; 2018-01-25)
DX: A41.51 Sepsis due to Escherichia coli [E. coli] (principal); I62.01 Nontraumatic acute subdural hemorrhage; E43 Unspecified severe protein-calorie malnutrition; G93.40 Encephalopathy, unspecified; L89.152 Pressure ulcer of sacral region, stage 2; A04.72 Enterocolitis due to Clostridium difficile, not specified as recurrent; L89.899 Pressure ulcer of other site, unspecified stage; I62.03 Nontraumatic chronic subdural hemorrhage; Z68.1 Body mass index [BMI] 19.9 or less, adult; N39.0 Urinary tract infection, site not specified; Z51.5 Encounter for palliative care; R62.7 Adult failure to thrive; Z93.1 Gastrostomy status; D64.9 Anemia, unspecified; E78.5 Hyperlipidemia, unspecified; I10 Essential (primary) hypertension; E87.6 Hypokalemia; E83.39 Other disorders of phosphorus metabolism; E83.42 Hypomagnesemia; R00.0 Tachycardia, unspecified; N40.0 Benign prostatic hyperplasia without lower urinary tract symptoms; F03.90 Unspecified dementia, unspecified severity, without behavioral disturbance, psychotic disturbance, mood disturbance, and anxiety; Z86.73 Personal history of transient ischemic attack (TIA), and cerebral infarction without residual deficits
CPT/HCPCS: 36415; 36416; 36430; 51701; 70450; 71045; 71275; 72170; 80048; 80053; 80069; 81003; 81015; 82553; 83605; 83735; 84100; 84484; 85025; 85610; 85730; 86140; 86850; 86900; 86901; 87040; 87070; 87077; 87086; 87186; 87205; 87324; 87449; 93005; 96365; 96367; 96375; A4216; G8978-GP-CN; G8979-GP-CN; G8980-GP-CN; G8987-GO-CM; G8988-GO-CM; G8989-GO-CM; G8996-GN-CI; G8997-GN-CH; J0696; J0744; J2185; J2310; J3430; J3475; J7050; J7626; P9059